=== PATIENT | female | born 1990 | race Caucasian/White ===

== ENCOUNTER 2016-10-07 17:40 | Emergency (ER) | payer OTHER ==
[~2016-10-07] VITALS: Ht 152.4 cm; Wt 58.4 kg
[2016-10-07 17:45] VITALS: TEMP 36.9; Ht 152.4 cm; Wt 58.4 kg
[2016-10-07] MEDS ORDERED: SODIUM CHLORIDE 0.9% 1000ML 1,000 ML IV STA (18:27)
[2016-10-07] MEDS ORDERED: ONDANSETRON INJ 2 MG/ML 2 ML VIAL IV STA (18:27)
[2016-10-07] MEDS ORDERED: KETOROLAC TROMETHAMINE 30 MG/ML VIAL IV STA (18:27)
[2016-10-07 18:42] LABS: BASO % 0.1 %; BASO ABS # 0.01 K/uL (0-0.2); COMPLETE YES; EOS % 0.7 %; HEMATOCRIT 40.9 % (37-47); IG% 0.1 %; LYMPH % 34.1 %; MEAN CELL VOLUME 89.1 fL (80-100); MEAN CORPUSCULAR HEMOGLOBIN 30.7 pg (25-34); MEAN CORPUSCULAR HGB CONC 34.5 g/dl (32-36); MEAN PLATELET VOLUME 10.3 fL (7.4-10.4); MONO % 7.1 %; NEUT % 57.9 %; PLATELET COUNT 195 K/uL (130-400); RED BLOOD COUNT 4.59 M/uL (4.2-5.4); WHITE BLOOD COUNT 7.62 K/uL (4.8-10.8)
[2016-10-07 18:59] LABS: ALT/SGPT 17 U/L (12-78); AST/SGOT 12 U/L (15-37); BLOOD UREA NITROGEN 12 mg/dl (7-18); BUN/CREATININE RATIO 16.9 (10-20); CARBON DIOXIDE 29 mmol/L (21-32); CHLORIDE 107 mmol/L (98-107); CREATININE 0.72 mg/dl (0.60-1.20); GLUCOSE 71 mg/dl (70-99); POTASSIUM 3.7 mmol/L (3.5-5.1); SODIUM 143 mmol/L (136-145)
[2016-10-07 19:02] LABS: ALKALINE PHOSPHATASE 40 U/L (45-117)
[2016-10-07] MEDS ORDERED: SERT25TA PO (19:09)
--- NOTE | 2016-10-07 19:18 | DIAGNOSTIC IMAGING REPORT ---
CT SCAN OF THE ABDOMEN AND PELVIS WITHOUT CONTRAST CLINICAL HISTORY: Left flank pain COMPARISON STUDY: 07/19/2015 TECHNIQUE: CT scan of the abdomen and pelvis was performed from the lung bases to the proximal femurs. Images are reviewed in the axial, sagittal, and coronal planes. IV contrast was not administered for this examination. CT DOSE: 536.99 mGy.cm FINDINGS: Lower chest: There are mild basilar atelectatic changes. Liver: The unenhanced liver is normal in size, contour, and attenuation. There is no intrahepatic biliary ductal dilatation. Gallbladder: Contracted Spleen: Normal in size and attenuation. Pancreas: Unremarkable. Adrenal glands: Unremarkable. Kidneys: There is 8 mm right renal hypodensity consistent with a cyst. No renal calculi are visualized. There is no hydronephrosis. No ureteral or bladder calculi are visualized. Bowel: Evaluation the bowel is limited given the lack of intravenous and oral contrast. There are no transition zones indicate bowel obstruction. The appendix appears normal as visualized. There is no acute diverticulitis. Peritoneum: There is a small amount of free fluid within the pelvis. No free air is visualized. Vasculature: The abdominal aorta is normal in course and caliber. Adenopathy: None. Pelvic viscera: The bladder, and pelvic viscera are unremarkable. Skeletal structures: No destructive osseous lesions are seen. IMPRESSION: 1. No evidence of bowel obstruction. No evidence of free air 2. No renal ureteral or bladder calculi are visualized 3. No evidence of acute appendicitis. No evidence of diverticulitis. 4. Small amount of free fluid in the pelvis Electronically signed by: Marck Paez M.D. 10/07/2016 7:16 PM Dictated Date/Time: 10/07/2016 7:12 PM
[2016-10-07 19:26] LABS: URINE APPEARANCE CLEAR (CLEAR); URINE BILIRUBIN NEG (NEG); URINE COLOR DK YELLOW; URINE EPITHELIAL CELL AUTO >30 /lpf (0-5); URINE NITRITE NEG (NEG); URINE SPECIFIC GRAVITY 1.025 (1.000-1.030); UROBILINOGEN NEG (NEG); ZZUR CULT IF INDIC CLEAN CATCH NO
[2016-10-07 19:32] LABS: MANUAL MICROSCOPIC REQUIRED? NO; REVIEW REQ? NO
[2016-10-07] MEDS ORDERED: ONDA4TAB46 PO (19:45)
--- NOTE | 2016-10-07 19:47 | EMERGENCY ROOM VISIT NOTE ---
History First contact with patient: 18:20 Chief Complaint: FLANK PAIN Stated Complaint: L SIDED FLANK PAIN,NAUSEA History of Present Illness The patient is a 26 year old female who presents to the Emergency Room with complaints of left flank pain which started yesterday. The patient states it is there all the time and gets intermittent sharp pains which make her nauseated. She currently rates the pain at a 6 out of 10. She denies any vomiting. The patient denies any fever, chest pain or shortness of breath. The patient denies any heartburn. The patient denies any urinary symptoms of frequency, urgency, dysuria or hematuria. The patient denies any vaginal discharge. The patient denies . The patient denies any history of kidney stones or any family history of kidney stones. Review of Systems 10 system review was performed and was negative unless stated otherwise history of present illness. Past Medical/Surgical History Medical Problems: (1) Bipolar Disorder, Unspecified (2) Chondromalacia Patellae (3) Diab Anayeli Wo Compl, Type Ii Or Unspec Type, Uncontrolled (4) Tobacco Use Disorder Family History Cancer Gallbladder disease Social History Smoking Status: Current Every Day Smoker Alcohol Use: none Marital Status: Occupation Status: unemployed Current/Historical Medications Scheduled Sertraline (Zoloft), 25 MG PO DAILY Allergies Coded Allergies: Adhesives (Unverified Allergy, Mild, RASH, 03/08/16) Nickel (Unverified Allergy, Mild, UNKNOWN, 03/08/16) Physical Exam Vital Signs Date Time Temp Pulse Resp B/P Pulse Ox O2 Delivery O2 Flow Rate FiO2 10/07/16 17:45 36.9 80 20 118/76 100 Room Air Physical Exam GENERAL: 26-year-old white female appears in no acute distress. MENTAL Status: Alert and oriented 3. EYES: No icterus noted MOUTH: Mucosa is moist NECK: Supple, no lymphadenopathy noted. No carotid bruits noted. LUNGS: Clear auscultation without wheezes rales or rhonchi. CARDIAC: Regular rate and rhythm without murmur. Pulses is full and equal throughout. BACK: Left CVA tenderness noted. ABDOMEN: Positive bowel sounds all 4 quadrants. Soft, tenderness palpation in the left flank region otherwise nontender to palpation without organomegaly or masses. EXTREMITIES: No cyanosis or edema noted. Medical Decision & Procedures ER Provider Diagnostic Interpretation: CT SCAN OF THE ABDOMEN AND PELVIS WITHOUT CONTRAST CLINICAL HISTORY: Left flank pain COMPARISON STUDY: 07/19/2015 TECHNIQUE: CT scan of the abdomen and pelvis was performed from the lung bases to the proximal femurs. Images are reviewed in the axial, sagittal, and coronal planes. IV contrast was not administered for this examination. CT DOSE: 536.99 mGy.cm FINDINGS: Lower chest: There are mild basilar atelectatic changes. Liver: The unenhanced liver is normal in size, contour, and attenuation. There is no intrahepatic biliary ductal dilatation. Gallbladder: Contracted Spleen: Normal in size and attenuation. Pancreas: Unremarkable. Adrenal glands: Unremarkable. Kidneys: There is 8 mm right renal hypodensity consistent with a cyst. No renal calculi are visualized. There is no hydronephrosis. No ureteral or bladder calculi are visualized. Bowel: Evaluation the bowel is limited given the lack of intravenous and oral contrast. There are no transition zones indicate bowel obstruction. The appendix appears normal as visualized. There is no acute diverticulitis. Peritoneum: There is a small amount of free fluid within the pelvis. No free air is visualized. Vasculature: The abdominal aorta is normal in course and caliber. Adenopathy: None. Pelvic viscera: The bladder, and pelvic viscera are unremarkable. Skeletal structures: No destructive osseous lesions are seen. IMPRESSION: 1. No evidence of bowel obstruction. No evidence of free air 2. No renal ureteral or bladder calculi are visualized 3. No evidence of acute appendicitis. No evidence of diverticulitis. 4. Small amount of free fluid in the pelvis Laboratory Results 10/07/16 18:30 Red Blood Count 4.59, Mean Corpuscular Volume 89.1, Mean Corpuscular Hemoglobin 30.7, Mean Corpuscular Hemoglobin Concent 34.5, Mean Platelet Volume 10.3, Neutrophils (%) (Auto) 57.9, Lymphocytes (%) (Auto) 34.1, Monocytes (%) (Auto) 7.1, Eosinophils (%) (Auto) 0.7, Basophils (%) (Auto) 0.1, Neutrophils # (Auto) 4.41, Lymphocytes # (Auto) 2.60, Monocytes # (Auto) 0.54, Eosinophils # (Auto) 0.05, Basophils # (Auto) 0.01 10/07/16 18:30 Test 10/07/16 18:30 White Blood Count 7.62 K/uL (4.8-10.8) Red Blood Count 4.59 M/uL (4.2-5.4) Hemoglobin 14.1 g/dL (12.0-16.0) Hematocrit 40.9 % (37-47) Mean Corpuscular Volume 89.1 fL (80-100) Mean Corpuscular Hemoglobin 30.7 pg (25-34) Mean Corpuscular Hemoglobin Concent 34.5 g/dl (32-36) Platelet Count 195 K/uL (130-400) Mean Platelet Volume 10.3 fL (7.4-10.4) Neutrophils (%) (Auto) 57.9 % Lymphocytes (%) (Auto) 34.1 % Monocytes (%) (Auto) 7.1 % Eosinophils (%) (Auto) 0.7 % Basophils (%) (Auto) 0.1 % Neutrophils # (Auto) 4.41 K/uL (1.4-6.5) Lymphocytes # (Auto) 2.60 K/uL (1.2-3.4) Monocytes # (Auto) 0.54 K/uL (0.11-0.59) Eosinophils # (Auto) 0.05 K/uL (0-0.5) Basophils # (Auto) 0.01 K/uL (0-0.2) RDW Standard Deviation 44.1 fL (36.4-46.3) RDW Coefficient of Variation 13.5 % (11.5-14.5) Immature Granulocyte % (Auto) 0.1 % Immature Granulocyte # (Auto) 0.01 K/uL (0.00-0.02) Urine Color DK YELLOW Urine Appearance CLEAR (CLEAR) Urine pH 7.0 (4.5-7.5) Urine Specific [place] 1.025 (1.000-1.030) Urine Protein NEG (NEG) Urine Glucose (UA) NEG (NEG) Urine Ketones TRACE (NEG) Urine Occult Blood NEG (NEG) Urine Nitrite NEG (NEG) Urine Bilirubin NEG (NEG) Urine Urobilinogen NEG (NEG) Urine Leukocyte Esterase SMALL (NEG) Urine WBC (Auto) 1-5 /hpf (0-5) Urine RBC (Auto) 0-4 /hpf (0-4) Urine Hyaline Casts (Auto) 1-5 /lpf (0-5) Urine Epithelial Cells (Auto) >30 /lpf (0-5) Urine Bacteria (Auto) NEG (NEG) Anion Gap 7.0 mmol/L (3-11) Est Creatinine Clear Calc Drug Dose 96.4 ml/min Estimated GFR () 135.9 Estimated GFR (Non- 117.2 BUN/Creatinine Ratio 16.9 (10-20) Calcium Level 9.0 mg/dl (8.5-10.1) Total Bilirubin 0.4 mg/dl (0.2-1) Direct Bilirubin < 0.1 mg/dl (0-0.2) Aspartate Amino Transf (AST/SGOT) 12 U/L (15-37) Alanine Aminotransferase (ALT/SGPT) 17 U/L (12-78) Alkaline Phosphatase 40 U/L (45-117) Total Protein 7.6 gm/dl (6.4-8.2) Albumin 4.3 gm/dl (3.4-5.0) Lipase 245 U/L (73-393) Medications Administered Medications (Trade) Dose Ordered Sig/Blanca Route Start Time Stop Time Status Last Admin Dose Admin Ondansetron HCl (Zofran Inj) 4 mg NOW STAT IV 10/07/16 18:27 10/07/16 18:30 DC 10/07/16 18:40 4 MG Ketorolac Tromethamine 30 mg 30 mg NOW STAT IV 10/07/16 18:27 10/07/16 18:30 DC 10/07/16 18:41 30 MG Sodium Chloride (Nss 1000ml) 1,000 ml @ 999 mls/hr Q1H1M STAT IV 10/07/16 18:27 10/07/16 19:27 DC 10/07/16 18:40 999 MLS/HR ED Course The patient was evaluated. IV access was obtained. The patient was given 1 L normal saline wide-open. CBC and differential, renal profile, LFTs and lipase levels were ordered. Urinalysis was ordered. The patient was given Toradol 30 mg IV and Zofran 4 mg IV push for nausea. A CT stone study was ordered and interpreted by the radiologist as above without any acute findings. Urinalysis was negative. Labs are reviewed and were unremarkable. The patient was reevaluated and was feeling slightly better. The patient was informed of all findings and discharged home in stable condition. Medical Decision Differential diagnoses include reflux, gastritis, gastroenteritis, pancreatitis , cholelithiasis, cholecystitis, appendicitis, mesenteric ischemia, pyelonephritis, urinary tract infection, renal colic, diverticulitis, shingles, bowel obstruction, intussusception, hernia, ovarian torsion, ruptured ovarian cyst, ectopic , . Impression Primary Impression: Left upper quadrant pain Additional Impression: Nausea Departure Information Dispostion Home / Self-Care Condition GOOD Prescriptions Ondansetron Hcl (ZOFRAN) 4 Mg Tab 4 MG PO Q8H Y for Nausea, #10 TAB Prov: Adriana Mauro PA-C 10/07/16 Referrals Lindsey Carlson D.O. (PCP) Forms HOME CARE DOCUMENTATION FORM, IMPORTANT VISIT INFORMATION Patient Instructions A Signature Page, ED Nausea Vomiting, [facility] Additional Instructions Follow bland diet. Drink a lot of water. Avoid acidic or spicy foods. Advance diet slowly as tolerated. Recommend taking Zantac 150 mg twice daily for the next 5 days. Follow-up with your family doctor in 2 days for reevaluation. If symptoms should worsen, return to ER.
[2016-10-07 19:58] VITALS: BP 112/64; PULSE 87; O2SAT 97
== END 2016-10-07 19:59 | disposition home or self-care (01) ==
LOC: C.EDB 17:42 → C.EDC 19:59
DX: R10.12 Left upper quadrant pain (principal); R11.0 Nausea; E11.9 Type 2 diabetes mellitus without complications; F31.9 Bipolar disorder, unspecified; F17.200 Nicotine dependence, unspecified, uncomplicated; Z88.8 Allergy status to other drugs, medicaments and biological substances; Z91.09 Other allergy status, other than to drugs and biological substances; Z80.9 Family history of malignant neoplasm, unspecified; Z83.79 Family history of other diseases of the digestive system

== ENCOUNTER 2016-10-25 12:56 | Emergency (ER) | payer OTHER ==
[~2016-10-25] VITALS: Ht 152.4 cm; Wt 59.8 kg
[~2016-10-25 12:56] MED LIST: ONDA4TAB46 PO; SERT25TA PO
[2016-10-25 13:03] VITALS: TEMP 36.5; Ht 152.4 cm; Wt 59.8 kg
[2016-10-25] MEDS ORDERED: SODIUM CHLORIDE 0.9% 500ML 500 ML IV STA (14:03)
--- NOTE | 2016-10-25 14:31 | DIAGNOSTIC IMAGING REPORT ---
CHEST ONE VIEW PORTABLE CLINICAL HISTORY: Mood disorder. COMPARISON STUDY: Chest radiograph January 29, 2012. FINDINGS: Lung volumes are normal. Lungs are clear. There is no pneumothorax or pleural effusion. Cardiac size is normal. Mediastinal contours are normal. There is no evidence of pulmonary edema. IMPRESSION: No acute cardiopulmonary findings. Electronically signed by: Pato Tony M.D. 10/25/2016 2:29 PM Dictated Date/Time: 10/25/2016 2:29 PM
[2016-10-25 15:05] LABS: HEMATOCRIT 37.5 % (37-47); MEAN CELL VOLUME 89.5 fL (80-100); MEAN CORPUSCULAR HEMOGLOBIN 30.8 pg (25-34); MEAN CORPUSCULAR HGB CONC 34.4 g/dl (32-36); MEAN PLATELET VOLUME 10.9 fL (7.4-10.4); PLATELET COUNT 222 K/uL (130-400); RED BLOOD COUNT 4.19 M/uL (4.2-5.4); WHITE BLOOD COUNT 13.41 K/uL (4.8-10.8)
[2016-10-25 15:25] LABS: ALT/SGPT 15 U/L (12-78); BLOOD UREA NITROGEN 14 mg/dl (7-18); BUN/CREATININE RATIO 20.6 (10-20); CALCIUM 8.8 mg/dl (8.5-10.1); CARBON DIOXIDE 22 mmol/L (21-32); CHLORIDE 110 mmol/L (98-107); CREATININE 0.69 mg/dl (0.60-1.20); GLUCOSE 77 mg/dl (70-99); POTASSIUM 3.2 mmol/L (3.5-5.1); SODIUM 144 mmol/L (136-145)
[2016-10-25 15:27] LABS: URINE APPEARANCE CLEAR (CLEAR); URINE BILIRUBIN NEG (NEG); URINE COLOR YELLOW; URINE EPITHELIAL CELL AUTO >30 /lpf (0-5); URINE NITRITE NEG (NEG); URINE SPECIFIC GRAVITY 1.024 (1.000-1.030); UROBILINOGEN NEG (NEG)
[2016-10-25 15:28] LABS: MANUAL MICROSCOPIC REQUIRED? NO; REVIEW REQ? NO
[2016-10-25 15:35] LABS: ALB/GLOB RATIO 1.3 (0.9-2); ALKALINE PHOSPHATASE 40 U/L (45-117); AST/SGOT 22 U/L (15-37); BASO % 0.1 %; BASO ABS # 0.01 K/uL (0-0.2); COMPLETE YES; EOS % 0.3 %; IG% 0.3 %; LYMPH % 14.8 %; LYMPH ABS # 1.98 K/uL (1.2-3.4); MONO % 7.2 %; NEUT % 77.3 %
[2016-10-25] MEDS ORDERED: POTASSIUM CHLORIDE 10 MEQ TABCR PO STA (15:46)
[2016-10-25 15:57] LABS: BENZODIAZEPINE, URINE NEG (NEG); COCAINE,URINE NEG (NEG); PHENCYCLIDINE, URINE NEG (NEG)
[2016-10-25 17:12] VITALS: BP 167/71; PULSE 96; O2SAT 98
--- NOTE | 2016-10-25 20:43 | EMERGENCY ROOM VISIT NOTE ---
History Report prepared by Mason: Christy Dumont Under the Supervision of: Dr. Oscar Ortiz D.O. First contact with patient: 13:51 Chief Complaint: OTHER COMPLAINT Stated Complaint: RESPIRATORY History of Present Illness The patient is a 26 year old female who presents to the Emergency Room with complaints of an episode of shortness of breath that occurred about 3 hours ago. The patient states that she was vacuuming this morning and she started feeling nauseated. She sat down and began to feel short of breath. Afterwards, her fingers on both hands became numb. En route, when her blood pressure was being taken on her right arm, she was unable to move her left hand. The numbness spread from her hands up her entire arms and down through her entire body. She had a cramping sensation in both her hands and feet. She states that she tried to control her breathing, but it did not help her symptoms. Since her arrival in the ED, she has had a few episodes where her breathing speeds up but she has been able to control it. She notes that she has some epigastric abdominal pain during the episodes. Currently, she has some pain and swelling to her anterior neck. She also complains of a cough and a runny nose recently. She ended her menstrual period yesterday. Pt denies headache, change in vision, fevers, chest pain, vomiting, diarrhea, pain with urination, melena, leg swelling, hemoptysis, or other complaints. No recent surgeries or long trips. She does not have a history of anxiety attacks. She is not on control. The patient is a smoker. Additional history was obtained from the patient's friend. She notes that the patient told her that she wanted to kill herself and wanted to 4-5 times yesterday. The patient does report some problems going on with her father recently. She admits to hitting her head off of a wall yesterday but denies any headaches or loss of consciousness. Source of History: patient Onset: 3 hours ago Position: other (global) Quality: other (shortness of breath ) Timing: other (episodic) Associated Symptoms: + cough, + nausea, + neck pain, + numbness, No diarrhea , No fevers, No headache, No melena, No urinary symptoms, No vomiting Note: Other symptoms: runny nose Review of Systems See HPI for pertinent positives & negatives. A total of 10 systems reviewed and were otherwise negative. Past Medical & Surgical Medical Problems: (1) Bipolar Disorder, Unspecified (2) Chondromalacia Patellae (3) Diab Anayeli Wo Compl, Type Ii Or Unspec Type, Uncontrolled (4) Tobacco Use Disorder Family History Cancer Gallbladder disease Social History Smoking Status: Current Every Day Smoker Alcohol Use: none Marital Status: Occupation Status: unemployed Current/Historical Medications No Active Prescriptions or Reported Meds Allergies Coded Allergies: Adhesives (Unverified Allergy, Mild, RASH, 03/08/16) Nickel (Unverified Allergy, Mild, UNKNOWN, 03/08/16) Physical Exam Vital Signs Date Time Temp Pulse Resp B/P Pulse Ox O2 Delivery O2 Flow Rate FiO2 10/25/16 17:12 96 18 167/71 98 Room Air 10/25/16 15:42 73 18 107/69 99 Room Air 10/25/16 13:03 36.5 107 24 136/68 92 Room Air Physical Exam GENERAL: Sitting up in bed, disheveled, nontoxic, anxious. EYE EXAM: normal conjunctiva, PERRL and EOM's intact OROPHARYNX: no exudate, no erythema, lips, buccal mucosa, and tongue normal and mucous membranes are moist NECK: supple, no nuchal rigidity, no adenopathy, non-tender LUNGS: Clear to auscultation. Normal chest wall mechanics HEART: no murmurs, S1 normal and S2 normal ABDOMEN: abdomen soft, non-tender, normo-active bowel sounds, no masses, no rebound or guarding. BACK: Back is symmetrical on inspection and there is no deformity, no midline tenderness, no CVA tenderness. SKIN: no rashes and no bruising UPPER EXTREMITIES: upper extremities are grossly normal. LOWER EXTREMITIES: No pitting edema. NEURO EXAM: Normal sensorium, cranial nerves II-XII intact, normal speech, no weakness of arms, no weakness of legs. No drift. Finger to nose intact. Gross sensation intact. Rapid alternating movements of the upper extremities are intact. PSYCH: Denies suicidal or homicidal ideation, but friend notes that she has had homicidal ideations since yesterday. Medical Decision & Procedures ER Provider Diagnostic Interpretation: Xray results per the radiologist and my interpretation. CHEST ONE VIEW PORTABLE CLINICAL HISTORY: Mood disorder. COMPARISON STUDY: Chest radiograph January 29, 2012. FINDINGS: Lung volumes are normal. Lungs are clear. There is no pneumothorax or pleural effusion. Cardiac size is normal. Mediastinal contours are normal. There is no evidence of pulmonary edema. IMPRESSION: No acute cardiopulmonary findings. Electronically signed by: Pato Tony M.D. 10/25/2016 2:29 PM Dictated Date/Time: 10/25/2016 2:29 PM Laboratory Results 10/25/16 14:50 Red Blood Count 4.19, Mean Corpuscular Volume 89.5, Mean Corpuscular Hemoglobin 30.8, Mean Corpuscular Hemoglobin Concent 34.4, Mean Platelet Volume 10.9, Neutrophils (%) (Auto) 77.3, Lymphocytes (%) (Auto) 14.8, Monocytes (%) (Auto) 7.2, Eosinophils (%) (Auto) 0.3, Basophils (%) (Auto) 0.1, Neutrophils # (Auto) 10.37, Lymphocytes # (Auto) 1.98, Monocytes # (Auto) 0.97, Eosinophils # (Auto) 0.04, Basophils # (Auto) 0.01 10/25/16 14:50 Test 10/25/16 14:40 10/25/16 14:48 10/25/16 14:50 Urine Color YELLOW Urine Appearance CLEAR (CLEAR) Urine pH 6.0 (4.5-7.5) Urine Specific [place] 1.024 (1.000-1.030) Urine Protein NEG (NEG) Urine Glucose (UA) NEG (NEG) Urine Ketones 3+ (NEG) Urine Occult Blood NEG (NEG) Urine Nitrite NEG (NEG) Urine Bilirubin NEG (NEG) Urine Urobilinogen NEG (NEG) Urine Leukocyte Esterase TRACE (NEG) Urine WBC (Auto) 1-5 /hpf (0-5) Urine RBC (Auto) 0-4 /hpf (0-4) Urine Hyaline Casts (Auto) 1-5 /lpf (0-5) Urine Epithelial Cells (Auto) >30 /lpf (0-5) Urine Bacteria (Auto) NEG (NEG) Urine Test NEG (NEG) Urine Opiates Screen NEG (NEG) Urine Methadone, Qualitative NEG (NEG) Urine Barbiturates NEG (NEG) Urine Phencyclidine (PCP) Level NEG (NEG) Ur Amphetamine/Methamphetamine NEG (NEG) MDMA (Ecstasy) Screen NEG (NEG) Urine Benzodiazepines Screen NEG (NEG) Urine Cocaine Metabolite NEG (NEG) Urine Marijuana (THC) POS (NEG) Bedside Glucose 77 mg/dl (70-90) White Blood Count 13.41 K/uL (4.8-10.8) Red Blood Count 4.19 M/uL (4.2-5.4) Hemoglobin 12.9 g/dL (12.0-16.0) Hematocrit 37.5 % (37-47) Mean Corpuscular Volume 89.5 fL (80-100) Mean Corpuscular Hemoglobin 30.8 pg (25-34) Mean Corpuscular Hemoglobin Concent 34.4 g/dl (32-36) Platelet Count 222 K/uL (130-400) Mean Platelet Volume 10.9 fL (7.4-10.4) Neutrophils (%) (Auto) 77.3 % Lymphocytes (%) (Auto) 14.8 % Monocytes (%) (Auto) 7.2 % Eosinophils (%) (Auto) 0.3 % Basophils (%) (Auto) 0.1 % Neutrophils # (Auto) 10.37 K/uL (1.4-6.5) Lymphocytes # (Auto) 1.98 K/uL (1.2-3.4) Monocytes # (Auto) 0.97 K/uL (0.11-0.59) Eosinophils # (Auto) 0.04 K/uL (0-0.5) Basophils # (Auto) 0.01 K/uL (0-0.2) RDW Standard Deviation 43.6 fL (36.4-46.3) RDW Coefficient of Variation 13.3 % (11.5-14.5) Immature Granulocyte % (Auto) 0.3 % Immature Granulocyte # (Auto) 0.04 K/uL (0.00-0.02) D-Dimer < 190 ug/L FEU (0-500) Anion Gap 12.0 mmol/L (3-11) Est Creatinine Clear Calc Drug Dose 101.7 ml/min Estimated GFR () 141.2 Estimated GFR (Non- 121.8 BUN/Creatinine Ratio 20.6 (10-20) Calcium Level 8.8 mg/dl (8.5-10.1) Total Bilirubin 0.4 mg/dl (0.2-1) Direct Bilirubin 0.1 mg/dl (0-0.2) Aspartate Amino Transf (AST/SGOT) 22 U/L (15-37) Alanine Aminotransferase (ALT/SGPT) 15 U/L (12-78) Alkaline Phosphatase 40 U/L (45-117) Troponin I < 0.015 ng/ml (0-0.045) Total Protein 7.2 gm/dl (6.4-8.2) Albumin 4.0 gm/dl (3.4-5.0) Globulin 3.2 gm/dl (2.5-4.0) Albumin/Globulin Ratio 1.3 (0.9-2) Thyroid Stimulating Hormone (TSH) 1.080 uIu/ml (0.300-4.500) Ethyl Alcohol mg/dL < 3.0 mg/dl (0-3) Laboratory results per my review. Medications Administered Medications (Trade) Dose Ordered Sig/Blanca Route Start Time Stop Time Status Last Admin Dose Admin Sodium Chloride (Nss 500ml) 500 ml @ 999 mls/hr Q31M STAT IV 10/25/16 14:03 10/25/16 14:33 DC 10/25/16 14:03 999 MLS/HR Potassium Chloride (Klor-Con M10) 40 meq NOW STAT PO 10/25/16 15:46 10/25/16 15:51 DC 10/25/16 15:46 40 MEQ ECG Indication: SOB/dyspnea Rate (beats per minute): 60 Rhythm: sinus rhythm Findings: no ectopy, other (normal axis) ED Course ED COURSE: Vital signs were reviewed and showed tachycardia. The patients medical record was reviewed The above diagnostic studies were performed and reviewed. ED treatments and interventions as stated above. 1353: The patient was evaluated in room A3. A complete history and physical examination was performed. 1403: The patient's nurse was notified after the patient's friend told me that she had suicidal ideations since yesterday. Ordered NSS 500 ml @ 999 mls/hr IV. 1546: Ordered Potassium Chloride 40 meq PO. 1645: Upon reevaluation, the patient is feeling better. She does not have any homicidal or suicidal ideations and does not want to kill herself. She admits that yesterday she was depressed and upset over the of her cousin but would never kill herself. She has two kids and wanted to get her GED. Her friends feel comfortable taking her home and don't think she is in any danger to herself. I discussed my findings with the patient and she understands and agrees with the treatment plan. Based on the patients age, coexisting illnesses, exam and lab findings the decision to treat as an outpatient was made. The patient remained stable while under my care. The patient appeared well at the time of discharge. Medical Decision Differential diagnoses includes but is not limited to pneumonia, bronchitis, COPD/Asthma exacerbation, pneumothorax, pulmonary embolism, congestive heart failure, acute coronary syndrome Patient is a 26-year-old female is brought in for chest pain shortness of breath and diffuse numbness. She notes that she has had this intermittently. She has that her symptoms have completely resolved at this point. Labs show no significant anemia but a mild leukocytosis 13,000. Potassium is slightly low at 3.2 which I favor secondary to her initial tachypnea. BMP along with LFTs, troponin and TSH are normal. D-dimer was normal. Tox was positive for marijuana. Alcohol was negative. UA along with was negative. Patient's friends note that she did make suicidal statements yesterday. Patient admits to this and notes that she is very distraught yesterday secondary to her father. Patient notes that she has no plan. She does have 2 children notes that she would never harm herself. She had no intent. Along with her children she notes that she also once to get her GED. Friends do not believe that she would harm herself. EKG was unremarkable. Patient was evaluated by psychiatry/care managers and she met no admission criteria. She is discharged with follow-up with [facility]. I discussed the findings the patient and family members. They're culture will take her home. I do believe that this is secondary to anxiety. Discussed with Pt concerning signs and symptoms to watch out for. Pt was instructed to follow up with their PCP and discussed with the patient their option to return to the ED at anytime for persistent or worsening symptoms. The appropriate anticipatory guidance and out-patient management, including indications for return to the emergency department, were explained at length to the patient and understood. Impression Primary Impression: Anxiety Additional Impressions: Palpitations Shortness of breath Mood disorder Scribe Attestation The scribe's documentation has been prepared under my direction and personally reviewed by me in its entirety. I confirm that the note above accurately reflects all work, treatment, procedures, and medical decision making performed by me. Departure Information Dispostion Home / Self-Care Prescriptions No Active Prescriptions or Reported Meds Referrals Lindsey Carlson D.O. (PCP) Patient Instructions Depression Causes, Depression Help Tips, Depression Know Signs Sx, My [facility] Additional Instructions Please follow up with your primary care doctor with in the next 24 hours. Any worsening of your symptoms, please return to the ED immediately. This includes worsening chest pain, shortness breath, passing out, thought someone to harm herself or anyone else, or any other concerning signs or symptoms from her standpoint. Please follow up with [facility] as directed to by psychiatry care management Problem Qualifiers
== END 2016-10-25 17:03 | disposition home or self-care (01) ==
LOC: EDBD 12:56 → C.EDA 12:56
DX: F41.9 Anxiety disorder, unspecified (principal); R00.2 Palpitations; R06.02 Shortness of breath; F17.210 Nicotine dependence, cigarettes, uncomplicated; F31.9 Bipolar disorder, unspecified; E11.9 Type 2 diabetes mellitus without complications; R20.0 Anesthesia of skin

== ENCOUNTER 2016-12-06 06:19 | Emergency (ER) | payer SELFPAY ==
[~2016-12-06] VITALS: Ht 152.4 cm; Wt 55.4 kg
[2016-12-06 06:25] VITALS: TEMP 37.4; Ht 152.4 cm; Wt 55.4 kg
--- NOTE | 2016-12-06 06:41 | EMERGENCY ROOM VISIT NOTE ---
History Report prepared by Mason: Tsering Subramanian Under the Supervision of: Dr. Agustín Juarez M.D. First contact with patient: 06:33 Chief Complaint: NAUSEA Stated Complaint: NAUSEA,VOMITING x 2WKS History of Present Illness The patient is a 26 year old female who presents to the Emergency Room with complaints of constant nausea beginning 2 weeks ago. The patient states that she had abdominal cramping that felt like period cramps but she had her period 2 weeks prior and is supposed to get her next period next week. She reports that she took 2 tests that were negative and notes that she has 2 children. She complains of vomiting, diarrhea 2 days ago, and intermittent chills. The patient denies any urinary symptoms, fever, and increased stress. She notes that she has never had this problem before. Source of History: patient Onset: 2 weeks ago Position: other (global) Quality: other (nausea) Timing: constant Associated Symptoms: + chills, + diarrhea, + vomiting, No fevers, No urinary symptoms Review of Systems All systems have been listed, reviewed, and are negative other than those previously mentioned. Please see Additional Medical History Sheet. Past Medical & Surgical Medical Problems: (1) Bipolar Disorder, Unspecified (2) Chondromalacia Patellae (3) Diab Anayeli Wo Compl, Type Ii Or Unspec Type, Uncontrolled (4) Tobacco Use Disorder Family History Cancer Gallbladder disease Social History Smoking Status: Never Smoker Alcohol Use: none Marital Status: Occupation Status: employed Current/Historical Medications Scheduled Ondasetron Odt (Zofran Odt), 4 MG SL Q6H Allergies Coded Allergies: Adhesives (Unverified Allergy, Mild, RASH, 12/06/16) Nickel (Unverified Allergy, Mild, UNKNOWN, 12/06/16) Physical Exam Vital Signs Date Time Temp Pulse Resp B/P Pulse Ox O2 Delivery O2 Flow Rate FiO2 12/06/16 08:34 66 18 103/64 100 Room Air 12/06/16 06:25 37.4 87 20 116/77 100 Room Air Physical Exam GENERAL: Patient awake, alert, oriented x 3. Patient follows commands. Patient does not appear toxic. Patient is adequately hydrated and well- nourished. HEENT: Normal head, pupils equal, reactive to light and accommodation. Ears normal. Oral cavity and posterior pharynx appear normal. Neck: Without adenopathy, no neck vein distention. LUNGS: Clear to auscultation. No wheezes, no rales, no rhonchi. HEART: No murmurs. No gallops. No rubs ABDOMEN: No masses, no rebound, no hepatomegaly or splenomegaly. EXTREMITIES: No signs of trauma. No pedal or pretibial edema. No calf or thigh tenderness. NEUROLOGIC: Cranial nerves II-XII within normal limits. No gross motor sensory function deficits. Medical Decision & Procedures Laboratory Results 12/06/16 06:45 Red Blood Count 4.59, Mean Corpuscular Volume 89.5, Mean Corpuscular Hemoglobin 31.2, Mean Corpuscular Hemoglobin Concent 34.8, Mean Platelet Volume 10.5, Neutrophils (%) (Auto) 70.3, Lymphocytes (%) (Auto) 19.8, Monocytes (%) (Auto) 8.9, Eosinophils (%) (Auto) 0.7, Basophils (%) (Auto) 0.1, Neutrophils # (Auto) 5.63, Lymphocytes # (Auto) 1.59, Monocytes # (Auto) 0.71, Eosinophils # (Auto) 0.06, Basophils # (Auto) 0.01 12/06/16 06:45 Test 12/06/16 06:40 12/06/16 06:45 Urine Color YELLOW Urine Appearance CLEAR (CLEAR) Urine pH 7.0 (4.5-7.5) Urine Specific [place] 1.013 (1.000-1.030) Urine Protein NEG (NEG) Urine Glucose (UA) NEG (NEG) Urine Ketones NEG (NEG) Urine Occult Blood NEG (NEG) Urine Nitrite NEG (NEG) Urine Bilirubin NEG (NEG) Urine Urobilinogen NEG (NEG) Urine Leukocyte Esterase MODERATE (NEG) Urine WBC (Auto) 5-10 /hpf (0-5) Urine RBC (Auto) 0-4 /hpf (0-4) Urine Hyaline Casts (Auto) 1-5 /lpf (0-5) Urine Epithelial Cells (Auto) >30 /lpf (0-5) Urine Bacteria (Auto) NEG (NEG) Urine Test NEG (NEG) White Blood Count 8.02 K/uL (4.8-10.8) Red Blood Count 4.59 M/uL (4.2-5.4) Hemoglobin 14.3 g/dL (12.0-16.0) Hematocrit 41.1 % (37-47) Mean Corpuscular Volume 89.5 fL (80-100) Mean Corpuscular Hemoglobin 31.2 pg (25-34) Mean Corpuscular Hemoglobin Concent 34.8 g/dl (32-36) Platelet Count 197 K/uL (130-400) Mean Platelet Volume 10.5 fL (7.4-10.4) Neutrophils (%) (Auto) 70.3 % Lymphocytes (%) (Auto) 19.8 % Monocytes (%) (Auto) 8.9 % Eosinophils (%) (Auto) 0.7 % Basophils (%) (Auto) 0.1 % Neutrophils # (Auto) 5.63 K/uL (1.4-6.5) Lymphocytes # (Auto) 1.59 K/uL (1.2-3.4) Monocytes # (Auto) 0.71 K/uL (0.11-0.59) Eosinophils # (Auto) 0.06 K/uL (0-0.5) Basophils # (Auto) 0.01 K/uL (0-0.2) RDW Standard Deviation 43.7 fL (36.4-46.3) RDW Coefficient of Variation 13.3 % (11.5-14.5) Immature Granulocyte % (Auto) 0.2 % Immature Granulocyte # (Auto) 0.02 K/uL (0.00-0.02) Anion Gap 10.0 mmol/L (3-11) Est Creatinine Clear Calc Drug Dose 79.7 ml/min Estimated GFR () 111.2 Estimated GFR (Non- 95.9 BUN/Creatinine Ratio 14.3 (10-20) Calcium Level 8.5 mg/dl (8.5-10.1) Total Bilirubin 0.3 mg/dl (0.2-1) Aspartate Amino Transf (AST/SGOT) 10 U/L (15-37) Alanine Aminotransferase (ALT/SGPT) 16 U/L (12-78) Alkaline Phosphatase 37 U/L (45-117) Total Protein 7.6 gm/dl (6.4-8.2) Albumin 4.0 gm/dl (3.4-5.0) Globulin 3.6 gm/dl (2.5-4.0) Albumin/Globulin Ratio 1.1 (0.9-2) Laboratory results as stated above per my review. Medications Administered Medications (Trade) Dose Ordered Sig/Blanca Route Start Time Stop Time Status Last Admin Dose Admin Ondansetron HCl (Zofran Odt) 4 mg ONE ONCE PO 12/06/16 06:45 12/06/16 06:46 DC 12/06/16 06:48 4 MG ED Course 0633: Past medical records reviewed. The patient was evaluated in room B11B. A complete history and physical examination was performed. 0645: Zofran Odt 4mg PO. 0820: I reevaluated and updated the patient. She is feeling better. 0831: Upon reevaluation, the patient appeared to have improvement of her symptoms. I discussed today's findings with the patient. She verbalized agreement of the treatment plan. The patient was discharged home. Medical Decision Differential diagnoses include , viral gastroenteritis, and metabolic disorder. Multiple labs and urinalysis were obtained. Please see above. The patient does have some white cells in the urine but appears to be a contaminated specimen. Therefore, we will await culture results prior to treatment. The patient did improve with Zofran. The patient appears have some nonspecific abdominal pain and nausea. The patient will be treated conservatively with Zofran at home. She is to follow-up with the family physician and if necessary gastroenterology. Impression Primary Impression: Acute gastroenteritis Scribe Attestation The scribe's documentation has been prepared under my direction and personally reviewed by me in its entirety. I confirm that the note above accurately reflects all work, treatment, procedures, and medical decision making performed by me. Departure Information Dispostion Home / Self-Care Prescriptions Ondasetron Odt (ZOFRAN ODT) 4 Mg Tab 4 MG SL Q6H for Nausea, #10 TAB Prov: Agustín Juarez M.D. 12/06/16 Referrals No Doctor, Assigned (PCP) Forms HOME CARE DOCUMENTATION FORM, IMPORTANT VISIT INFORMATION Patient Instructions My [facility] Additional Instructions 1 Zofran every 4-6 hours as needed for nausea. Drink extra fluids. Follow-up with your family physician within the next 7 days. You may return to work tomorrow.
[2016-12-06] MEDS ORDERED: ONDANSETRON 4MG OD TAB PO ONE (06:45)
[2016-12-06 06:52] LABS: BASO % 0.1 %; BASO ABS # 0.01 K/uL (0-0.2); COMPLETE YES; EOS % 0.7 %; HEMATOCRIT 41.1 % (37-47); IG% 0.2 %; LYMPH % 19.8 %; LYMPH ABS # 1.59 K/uL (1.2-3.4); MEAN CELL VOLUME 89.5 fL (80-100); MEAN CORPUSCULAR HEMOGLOBIN 31.2 pg (25-34); MEAN CORPUSCULAR HGB CONC 34.8 g/dl (32-36); MEAN PLATELET VOLUME 10.5 fL (7.4-10.4); MONO % 8.9 %; NEUT % 70.3 %; PLATELET COUNT 197 K/uL (130-400); RED BLOOD COUNT 4.59 M/uL (4.2-5.4); WHITE BLOOD COUNT 8.02 K/uL (4.8-10.8)
[2016-12-06 06:59] LABS: URINE APPEARANCE CLEAR (CLEAR); URINE BILIRUBIN NEG (NEG); URINE COLOR YELLOW; URINE EPITHELIAL CELL AUTO >30 /lpf (0-5); URINE NITRITE NEG (NEG); URINE SPECIFIC GRAVITY 1.013 (1.000-1.030); UROBILINOGEN NEG (NEG); ZZUR CULT IF INDIC CLEAN CATCH NO
[2016-12-06 07:03] LABS: MANUAL MICROSCOPIC REQUIRED? NO; REVIEW REQ? NO
[2016-12-06 07:19] LABS: BUN/CREATININE RATIO 14.3 (10-20); CALCIUM 8.5 mg/dl (8.5-10.1); CREATININE 0.85 mg/dl (0.60-1.20); POTASSIUM 3.6 mmol/L (3.5-5.1)
[2016-12-06 07:22] LABS: ALB/GLOB RATIO 1.1 (0.9-2)
[2016-12-06] MEDS ORDERED: ONDA4TAB10 SL (08:29)
[2016-12-06 08:34] VITALS: BP 103/64; PULSE 66; O2SAT 100
== END 2016-12-06 08:48 | disposition home or self-care (01) ==
LOC: C.EDB 06:20
DX: K52.9 Noninfective gastroenteritis and colitis, unspecified (principal)

== ENCOUNTER 2017-01-02 12:36 | Emergency (ER) | payer OTHER ==
[~2017-01-02] VITALS: Ht 152.4 cm; Wt 57.9 kg
[~2017-01-02 12:36] MED LIST changes: +ONDA4TAB10 SL; -ONDA4TAB46 PO; -SERT25TA PO
[2017-01-02 12:38] VITALS: TEMP 37.1; Ht 152.4 cm; Wt 57.9 kg
[2017-01-02] MEDS ORDERED: SODIUM CHLORIDE 0.9% 1000ML 1,000 ML IV STA (12:44)
[2017-01-02 13:05] LABS: URINE APPEARANCE CLEAR (CLEAR); URINE BILIRUBIN NEG (NEG); URINE COLOR YELLOW; URINE NITRITE NEG (NEG); URINE PH 5.5 (4.5-7.5); URINE SPECIFIC GRAVITY 1.012 (1.000-1.030); UROBILINOGEN NEG (NEG); ZZUR CULT IF INDIC CLEAN CATCH NO
[2017-01-02 13:08] LABS: BASO % 0.2 %; BASO ABS # 0.01 K/uL (0-0.2); COMPLETE YES; EOS % 0.5 %; IG% 0.3 %; LYMPH % 30.3 %; MEAN CELL VOLUME 89.9 fL (80-100); MEAN CORPUSCULAR HEMOGLOBIN 30.8 pg (25-34); MEAN CORPUSCULAR HGB CONC 34.3 g/dl (32-36); MEAN PLATELET VOLUME 11.3 fL (7.4-10.4); MONO % 8.6 %; NEUT % 60.1 %; PLATELET COUNT 172 K/uL (130-400); RED BLOOD COUNT 4.45 M/uL (4.2-5.4); WHITE BLOOD COUNT 6.61 K/uL (4.8-10.8)
--- NOTE | 2017-01-02 13:17 | EMERGENCY ROOM VISIT NOTE ---
History Report prepared by [place]: Jak Martínez Under the Supervision of: Dr. Kendra Damico M.D. First contact with patient: 12:43 Chief Complaint: FLANK PAIN Stated Complaint: SEVERE PAIN LWR LEFT SIDE, PREG. TEST WAS POSITIVE History of Present Illness The patient is a 26 year old female who presents to the Emergency Room with complaints of persistent severe left flank pain that started at 0700 this morning. She had similar pain past last week that was more mild and resolved on its own. She had two Tylenol this morning that did help with the pain. There is some radiation to the left lower abdomen. The patient also complains of nausea & vomiting this morning. She denies vaginal bleeding or discharge, or changes in her bowels. She has a small amount of burning with urination that is not consistent with past UTIs. The patient had three positive home tests six days ago. She has had two past vaginal deliveries. P:2 LNMP was December 11. She denies any history of ectopic . Source of History: patient Onset: 0700 this morning Position: back (left flank) Symptom Intensity: severe Timing: other (persistent) Modifying Factors (Relieving): tylenol Associated Symptoms: + abdominal pain, + nausea, + urinary symptoms (burning ), + vomiting Review of Systems See HPI for pertinent positives & negatives. A total of 10 systems reviewed and were otherwise negative. Past Medical & Surgical Medical Problems: (1) Bipolar Disorder, Unspecified (2) Chondromalacia Patellae (3) Diab Anayeli Wo Compl, Type Ii Or Unspec Type, Uncontrolled (4) Tobacco Use Disorder Family History Cancer Gallbladder disease Social History Smoking Status: Current Every Day Smoker Alcohol Use: none Marital Status: Occupation Status: employed Current/Historical Medications No Active Prescriptions or Reported Meds Allergies Coded Allergies: Adhesives (Unverified Allergy, Mild, RASH, 01/02/17) Nickel (Unverified Allergy, Mild, UNKNOWN, 01/02/17) Physical Exam Vital Signs Date Time Temp Pulse Resp B/P Pulse Ox O2 Delivery O2 Flow Rate FiO2 01/02/17 14:42 60 16 108/61 99 Room Air 01/02/17 12:38 37.1 75 18 111/66 99 Room Air Physical Exam Vital signs reviewed. General: Well-appearing female, in no significant distress. HEENT: No scleral icterus, PERRLA, neck supple. Atraumatic. Cardiovascular: Regular rate and rhythm, no extra sounds. Pulmonary: Clear to auscultation bilaterally, normal work of breathing. Abdomen: Left lower quadrant tenderness, no rebound no guarding. Soft, nondistended, positive bowel sounds. Musculoskeletal: Atraumatic, no peripheral edema. No CVA tenderness. Neurologic: Patient awake alert and oriented x 3 Skin: Warm, dry, no rash Medical Decision & Procedures ER Provider Diagnostic Interpretation: Radiology results as stated below per my review and radiologist interpretation: ECTOPIC ULTRASOUND. (Transabdominal and endovaginal scanning) CLINICAL HISTORY: Left flank pain. Positive test. COMPARISON STUDY: Pelvic ultrasound dated 02/10/2016 FINDINGS: The uterus measured 9.6 x 4.9 x 5.1 cm. No intrauterine gestational sac was visualized. The right ovary measured 30 x 14 x 19 mm. The left ovary measured 29 x 17 x 3 mm. There was a ringlike structure within the left adnexal region measuring 24 mm. Given the clinical history, this could represent an ectopic . Clinical correlation is advocated. Correlation with quantitative beta hCGs is recommended. IMPRESSION: 1. No intrauterine gestational sac identified 2. Normal right ovary 3. 24 mm ringlike structure adjacent to the left ovary. Given the clinical findings, this could indicate an ectopic . Correlation with quantitative beta hCGs is recommended. Gynecological consultation is recommended Electronically signed by: Marck Paez M.D. 01/02/2017 2:17 PM Dictated Date/Time: 01/02/2017 2:13 PM Laboratory Results 01/02/17 12:55 Red Blood Count 4.45, Mean Corpuscular Volume 89.9, Mean Corpuscular Hemoglobin 30.8, Mean Corpuscular Hemoglobin Concent 34.3, Mean Platelet Volume 11.3, Neutrophils (%) (Auto) 60.1, Lymphocytes (%) (Auto) 30.3, Monocytes (%) (Auto) 8.6, Eosinophils (%) (Auto) 0.5, Basophils (%) (Auto) 0.2, Neutrophils # (Auto) 3.98, Lymphocytes # (Auto) 2.00, Monocytes # (Auto) 0.57, Eosinophils # (Auto) 0.03, Basophils # (Auto) 0.01 01/02/17 12:55 Test 01/02/17 12:50 01/02/17 12:55 Urine Color YELLOW Urine Appearance CLEAR (CLEAR) Urine pH 5.5 (4.5-7.5) Urine Specific [place] 1.012 (1.000-1.030) Urine Protein NEG (NEG) Urine Glucose (UA) NEG (NEG) Urine Ketones NEG (NEG) Urine Occult Blood NEG (NEG) Urine Nitrite NEG (NEG) Urine Bilirubin NEG (NEG) Urine Urobilinogen NEG (NEG) Urine Leukocyte Esterase NEG (NEG) White Blood Count 6.61 K/uL (4.8-10.8) Red Blood Count 4.45 M/uL (4.2-5.4) Hemoglobin 13.7 g/dL (12.0-16.0) Hematocrit 40.0 % (37-47) Mean Corpuscular Volume 89.9 fL (80-100) Mean Corpuscular Hemoglobin 30.8 pg (25-34) Mean Corpuscular Hemoglobin Concent 34.3 g/dl (32-36) Platelet Count 172 K/uL (130-400) Mean Platelet Volume 11.3 fL (7.4-10.4) Neutrophils (%) (Auto) 60.1 % Lymphocytes (%) (Auto) 30.3 % Monocytes (%) (Auto) 8.6 % Eosinophils (%) (Auto) 0.5 % Basophils (%) (Auto) 0.2 % Neutrophils # (Auto) 3.98 K/uL (1.4-6.5) Lymphocytes # (Auto) 2.00 K/uL (1.2-3.4) Monocytes # (Auto) 0.57 K/uL (0.11-0.59) Eosinophils # (Auto) 0.03 K/uL (0-0.5) Basophils # (Auto) 0.01 K/uL (0-0.2) RDW Standard Deviation 44.5 fL (36.4-46.3) RDW Coefficient of Variation 13.5 % (11.5-14.5) Immature Granulocyte % (Auto) 0.3 % Immature Granulocyte # (Auto) 0.02 K/uL (0.00-0.02) Anion Gap 7.0 mmol/L (3-11) Est Creatinine Clear Calc Drug Dose 106.3 ml/min Estimated GFR () 144.0 Estimated GFR (Non- 124.3 BUN/Creatinine Ratio 17.6 (10-20) Calcium Level 8.8 mg/dl (8.5-10.1) Total Bilirubin 0.2 mg/dl (0.2-1) Direct Bilirubin < 0.1 mg/dl (0-0.2) Aspartate Amino Transf (AST/SGOT) 10 U/L (15-37) Alanine Aminotransferase (ALT/SGPT) 15 U/L (12-78) Alkaline Phosphatase 38 U/L (45-117) Total Protein 7.2 gm/dl (6.4-8.2) Albumin 4.0 gm/dl (3.4-5.0) Human Chorionic Gonadotropin, Quant 1267 mIU/mL Laboratory results per my review. Medications Administered Medications (Trade) Dose Ordered Sig/Blanca Route Start Time Stop Time Status Last Admin Dose Admin Sodium Chloride (Nss 1000ml) 1,000 ml @ 999 mls/hr Q1H1M STAT IV 01/02/17 12:44 01/02/17 13:44 DC 01/02/17 12:44 999 MLS/HR ED Course 1244: NSS 1000 ml @ 999 mls/hr. 1245: The patient was evaluated by my resident. 1300: Past medical records reviewed. The patient was evaluated in room C10. A complete history and physical examination was performed. 1427: The resident discussed the case with Dr. Malone Technical Testing Engineer. He will evaluate the patient. 1430: The resident updated the patient. 1500: Technical Testing Engineer is in the ED evaluating the patient. Medical Decision Differential diagnosis: Kidney stone, ovarian cyst, ectopic , UTI, pyelonephritis. This patient was evaluated and appeared to be in no significant distress. Physical examination reveals a tenderness to the left lower quadrant. Patient' s hCG is about 1200. Rh is positive. Ultrasound of the pelvis was performed and reveals a left adnexal cystic structure adjacent to the ovary concerning for an ectopic . The patient was informed of the findings and Dr. Malone of [employer] was consulted. He has evaluated the patient in the emergency department and they have decided on methotrexate therapy. Please refer to Dr. Malone's notes for further details. Consults Time Called: 1420 Consulting Physician: Dr. Malone Technical Testing Engineer Returned Call: [phone]: The resident discussed the case with Dr. Faisal, Technical Testing Engineer. He will evaluate the patient. Impression Primary Impression: Ectopic without intrauterine Scribe Attestation The scribe's documentation has been prepared under my direction and personally reviewed by me in its entirety. I confirm that the note above accurately reflects all work, treatment, procedures, and medical decision making performed by me. Departure Information Prescriptions No Active Prescriptions or Reported Meds Referrals Lindsey Carlson D.O. (PCP) Patient Instructions My [facility]
[2017-01-02 13:24] LABS: ALT/SGPT 15 U/L (12-78); AST/SGOT 10 U/L (15-37); BLOOD UREA NITROGEN 11 mg/dl (7-18); BUN/CREATININE RATIO 17.6 (10-20); CALCIUM 8.8 mg/dl (8.5-10.1); CARBON DIOXIDE 28 mmol/L (21-32); CHLORIDE 108 mmol/L (98-107); CREATININE 0.65 mg/dl (0.60-1.20); GLUCOSE 60 mg/dl (70-99); POTASSIUM 3.7 mmol/L (3.5-5.1); SODIUM 143 mmol/L (136-145)
[2017-01-02 13:32] LABS: MANUAL MICROSCOPIC REQUIRED? NO; REVIEW REQ? NO
[2017-01-02 13:41] LABS: ALKALINE PHOSPHATASE 38 U/L (45-117)
--- NOTE | 2017-01-02 14:18 | DIAGNOSTIC IMAGING REPORT ---
ECTOPIC ULTRASOUND. (Transabdominal and endovaginal scanning) CLINICAL HISTORY: Left flank pain. Positive test. COMPARISON STUDY: Pelvic ultrasound dated 02/10/2016 FINDINGS: The uterus measured 9.6 x 4.9 x 5.1 cm. No intrauterine gestational sac was visualized. The right ovary measured 30 x 14 x 19 mm. The left ovary measured 29 x 17 x 3 mm. There was a ringlike structure within the left adnexal region measuring 24 mm. Given the clinical history, this could represent an ectopic . Clinical correlation is advocated. Correlation with quantitative beta hCGs is recommended. IMPRESSION: 1. No intrauterine gestational sac identified 2. Normal right ovary 3. 24 mm ringlike structure adjacent to the left ovary. Given the clinical findings, this could indicate an ectopic . Correlation with quantitative beta hCGs is recommended. Gynecological consultation is recommended Electronically signed by: Marck Paez M.D. 01/02/2017 2:17 PM Dictated Date/Time: 01/02/2017 2:13 PM
[2017-01-02] MEDS ORDERED: METHOTREXATE SOD IM ONE (15:45)
--- NOTE | 2017-01-02 16:15 | EMERGENCY ROOM VISIT NOTE ---
History First contact with patient: 12:49 Chief Complaint: FLANK PAIN Stated Complaint: SEVERE PAIN LWR LEFT SIDE, PREG. TEST WAS POSITIVE History of Present Illness The patient is a 26 year old female who presents to the Emergency Room with complaints of LLQ pain, N/V since 7 AM . She had similar pain previous last week for 3 days starting 12/27 then subsequently resolved . Currently reports 10 /10 pain this morning. She took Tylenol 400 mg x2 , which gave her some relief. . She also reports multiple positive urine test as of 12/27. She denies urinary urgency frequency, dysuria. She denies vaginal bleeding, , vaginal discharge, movement, contractions. Patient reports hx of 2 normal Vaginal deliveries without complications. Patient reports no Pap smear in at least 4 years and has not been following regularly with OBGYN due to insurance issues. Past Medical/Surgical History Medical Problems: (1) Bipolar Disorder, Unspecified (2) Chondromalacia Patellae (3) Diab Anayeli Wo Compl, Type Ii Or Unspec Type, Uncontrolled (4) Tobacco Use Disorder Family History Cancer Gallbladder disease Social History Smoking Status: Current Every Day Smoker Alcohol Use: none Marital Status: Occupation Status: employed Current/Historical Medications No Active Prescriptions or Reported Meds Allergies Coded Allergies: Adhesives (Unverified Allergy, Mild, RASH, 01/02/17) Nickel (Unverified Allergy, Mild, UNKNOWN, 01/02/17) Physical Exam Vital Signs Date Time Temp Pulse Resp B/P Pulse Ox O2 Delivery O2 Flow Rate FiO2 01/02/17 16:33 101 100/60 100 Room Air 01/02/17 14:42 60 16 108/61 99 Room Air 01/02/17 12:38 37.1 75 18 111/66 99 Room Air Physical Exam GENERAL: alert, well appearing, well nourished, no distress, non-toxic EYE EXAM: normal conjunctiva, PERRL and EOM's grossly intact NECK: supple, no nuchal rigidity, no adenopathy, non-tender LUNGS: Clear to auscultation. Normal chest wall mechanics HEART: no murmurs, S1 normal and S2 normal ABDOMEN: Tender to palpation in LLQ, normo-active bowel sounds, no masses, no rebound or guarding. BACK: Back is symmetrical on inspection and there is no deformity, no midline tenderness, no CVA tenderness. SKIN: no rashes and no bruising UPPER EXTREMITIES: upper extremities are grossly normal. LOWER EXTREMITIES: No pitting edema. NEURO EXAM: Normal sensorium, cranial nerves II-XII grossly intact, normal speech, no gross weakness of arms, no gross weakness of legs. Medical Decision & Procedures ER Provider Diagnostic Interpretation: ECTOPIC ULTRASOUND. (Transabdominal and endovaginal scanning) CLINICAL HISTORY: Left flank pain. Positive test. COMPARISON STUDY: Pelvic ultrasound dated 02/10/2016 FINDINGS: The uterus measured 9.6 x 4.9 x 5.1 cm. No intrauterine gestational sac was visualized. The right ovary measured 30 x 14 x 19 mm. The left ovary measured 29 x 17 x 3 mm. There was a ringlike structure within the left adnexal region measuring 24 mm. Given the clinical history, this could represent an ectopic . Clinical correlation is advocated. Correlation with quantitative beta hCGs is recommended. IMPRESSION: 1. No intrauterine gestational sac identified 2. Normal right ovary 3. 24 mm ringlike structure adjacent to the left ovary. Given the clinical findings, this could indicate an ectopic . Correlation with quantitative beta hCGs is recommended. Gynecological consultation is recommended Laboratory Results 01/02/17 12:55 Red Blood Count 4.45, Mean Corpuscular Volume 89.9, Mean Corpuscular Hemoglobin 30.8, Mean Corpuscular Hemoglobin Concent 34.3, Mean Platelet Volume 11.3, Neutrophils (%) (Auto) 60.1, Lymphocytes (%) (Auto) 30.3, Monocytes (%) (Auto) 8.6, Eosinophils (%) (Auto) 0.5, Basophils (%) (Auto) 0.2, Neutrophils # (Auto) 3.98, Lymphocytes # (Auto) 2.00, Monocytes # (Auto) 0.57, Eosinophils # (Auto) 0.03, Basophils # (Auto) 0.01 01/02/17 12:55 Test 01/02/17 12:50 01/02/17 12:55 Urine Color YELLOW Urine Appearance CLEAR (CLEAR) Urine pH 5.5 (4.5-7.5) Urine Specific [place] 1.012 (1.000-1.030) Urine Protein NEG (NEG) Urine Glucose (UA) NEG (NEG) Urine Ketones NEG (NEG) Urine Occult Blood NEG (NEG) Urine Nitrite NEG (NEG) Urine Bilirubin NEG (NEG) Urine Urobilinogen NEG (NEG) Urine Leukocyte Esterase NEG (NEG) White Blood Count 6.61 K/uL (4.8-10.8) Red Blood Count 4.45 M/uL (4.2-5.4) Hemoglobin 13.7 g/dL (12.0-16.0) Hematocrit 40.0 % (37-47) Mean Corpuscular Volume 89.9 fL (80-100) Mean Corpuscular Hemoglobin 30.8 pg (25-34) Mean Corpuscular Hemoglobin Concent 34.3 g/dl (32-36) Platelet Count 172 K/uL (130-400) Mean Platelet Volume 11.3 fL (7.4-10.4) Neutrophils (%) (Auto) 60.1 % Lymphocytes (%) (Auto) 30.3 % Monocytes (%) (Auto) 8.6 % Eosinophils (%) (Auto) 0.5 % Basophils (%) (Auto) 0.2 % Neutrophils # (Auto) 3.98 K/uL (1.4-6.5) Lymphocytes # (Auto) 2.00 K/uL (1.2-3.4) Monocytes # (Auto) 0.57 K/uL (0.11-0.59) Eosinophils # (Auto) 0.03 K/uL (0-0.5) Basophils # (Auto) 0.01 K/uL (0-0.2) RDW Standard Deviation 44.5 fL (36.4-46.3) RDW Coefficient of Variation 13.5 % (11.5-14.5) Immature Granulocyte % (Auto) 0.3 % Immature Granulocyte # (Auto) 0.02 K/uL (0.00-0.02) Anion Gap 7.0 mmol/L (3-11) Est Creatinine Clear Calc Drug Dose 106.3 ml/min Estimated GFR () 144.0 Estimated GFR (Non- 124.3 BUN/Creatinine Ratio 17.6 (10-20) Calcium Level 8.8 mg/dl (8.5-10.1) Total Bilirubin 0.2 mg/dl (0.2-1) Direct Bilirubin < 0.1 mg/dl (0-0.2) Aspartate Amino Transf (AST/SGOT) 10 U/L (15-37) Alanine Aminotransferase (ALT/SGPT) 15 U/L (12-78) Alkaline Phosphatase 38 U/L (45-117) Total Protein 7.2 gm/dl (6.4-8.2) Albumin 4.0 gm/dl (3.4-5.0) Human Chorionic Gonadotropin, Quant 1267 mIU/mL Medications Administered Medications (Trade) Dose Ordered Sig/Blanca Route Start Time Stop Time Status Last Admin Dose Admin Sodium Chloride 1,000 ml @ 999 mls/hr Q1H1M STAT IV 01/02/17 12:44 01/02/17 13:44 DC 01/02/17 12:44 999 MLS/HR Methotrexate Sodium/Syringe (Methotrexate Sodium PF/Syringe) 3 ml @ 0 mls/min ONE ONCE IM 01/02/17 15:45 01/02/17 15:46 DC 01/02/17 16:30 75 MLS/MIN Medical Decision Differential diagnoses includes but is not limited to gastritis, peptic ulcer disease, GERD, gallbladder disease, pancreatitis, small bowel obstruction, acute coronary syndrome, pericarditis, ischemic bowel, irritable bowel disease, irritable bowel syndrome, appendicitis, diverticulitis, malignancy, hernia, urinary tract infection, torsion, /ectopic , perforation, trauma, infectious. 26 yo p/w LLQ pain , + UPT test at home, N/V , with LLQ tenderness on exam, afebrile, VSS CBC: unremarkable BMP: unremarkable UA: Negative B-HC Blood Type: A Positive, Antibody scrn, Negative TV U/S: 24 mm ringlike structure adjacent to the left ovary. Given the clinical findings, this could indicate an ectopic . Based on exam findings, Elevated HCG, TV U/S finding, Ectopic was strongly suspected. Dr. Malone ([facility]) was consulted for recommendations. After evaluation by Faisal Rendon, it was decided to give 75 mg MTX injection IM today with followup in [facility] January [id number]. Patient advised to call clinic tmr morning. Impression Primary Impression: Ectopic without intrauterine Departure Information Prescriptions No Active Prescriptions or Reported Meds Referrals Lindsey Carlson D.O. (PCP) Forms HOME CARE DOCUMENTATION FORM, IMPORTANT VISIT INFORMATION Patient Instructions Ectopic Preg Methotrexate Tx, My [facility] Additional Instructions -Please call [facility] tmr morning to confirm appointment -Please followup with [facility] clinic on , January 06, 2017 -If you experience worsening pain, fevers chills, or feel concerned, call OBGYN clinic or return to ED. Resident Tracking Resident Involvement: Resident Care Provided Care Provided: Adult ED
[2017-01-02 16:33] VITALS: BP 100/60; PULSE 101; O2SAT 100
--- NOTE | 2017-01-02 20:21 | GYNECOLOGICAL CONSULTATION ---
DATE OF CONSULTATION: 01/02/2017 Consult is placed by ER physician Kendra Damico MD HISTORY OF PRESENT ILLNESS: This is a 26-year-old, G2, P2, last menstrual period was 12/11/2016 who knew she was , presented to the Emergency Room with left lower quadrant pain. She denied nausea, vomiting, shortness of breath, chills or fever. She denied any bleeding. Beta hCG done showed hCG was about 1200. An ultrasound done showed uterus of 9 x 5 x5. The right ovary as well as left ovary appeared grossly normal. There was no gestational sac seen in the uterus; however a 24 mm ring-like structure was seen adjacent to the left ovary; this is suspicious for an ectopic . PAST MEDICAL HISTORY: 1. History of bipolar disorder. 2. History of chondromalacia. PAST SURGICAL HISTORY: None. SOCIAL HISTORY: The patient is a smoker. Denies drug, tobacco or alcohol use. FAMILY HISTORY: Noncontributory. OBSTETRIC AND GYNECOLOGIC HISTORY: The patient has 2 live infants, no history of ectopic or PID in the past. PHYSICAL EXAMINATION: VITAL SIGNS: Temperature 37.1, pulse 75, respirations 18, blood pressure 111/66. HEART: S1, S2, regular rhythm and rate. LUNGS: Clear to auscultation bilaterally. ABDOMEN: No guarding, no rebound. The patient, however, has tenderness on the left lower pelvis on palpation. No CVA tenderness. PELVIC: There is no blood in the vagina. Cervix appeared grossly normal. There is tenderness and fullness in the left adnexa. LABORATORIES: CBC showed hemoglobin of 13.7, hematocrit 40, platelets of 172,000. Complete chemistry showed a BUN of 11 and creatinine of 0.65. AST of 10, ALT of 15. ASSESSMENT AND PLAN: A 26-year-old, G2, P2 with possible ectopic of the left adnexa. Laboratories and sonographic findings have been reviewed and discussed with the patient. We have discussed surgery as well as medical management. The risks and benefits of both have been discussed. The patient wishes to try medical therapy. Her body surface area is 1.5. She therefore will be receiving 75 mg of methotrexate. She will follow up in the office on day 4 and day 7 and during this time we will continue to follow her hCG titers and labs. The patient knows that if her bleeding gets worse or was thought to have any bleeding to be called to the office or return back to the Emergency Room. We have discussed other ectopic precautions with the patient as well. The patient has agreed. We would therefore proceed with plan as discussed above. I have discussed this plan with the ER attending, Dr. Dmaico who has agreed with management and would discharge patient as per protocol.
== END 2017-01-02 17:25 | disposition home or self-care (01) ==
LOC: C.EDB 12:39 → C.EDC 17:25
DX: O00.90 Unspecified ectopic pregnancy without intrauterine pregnancy (principal); F31.9 Bipolar disorder, unspecified; E11.9 Type 2 diabetes mellitus without complications; M22.40 Chondromalacia patellae, unspecified knee; F17.210 Nicotine dependence, cigarettes, uncomplicated; Z80.9 Family history of malignant neoplasm, unspecified; Z83.79 Family history of other diseases of the digestive system

== ENCOUNTER 2017-02-01 09:27 | Emergency (ER) | payer OTHER ==
[~2017-02-01] VITALS: Ht 152.4 cm; Wt 56.3 kg
[2017-02-01 09:40] VITALS: TEMP 36.6; Ht 152.4 cm; Wt 56.3 kg
[2017-02-01 10:49] LABS: BASO % 0.1 %; BASO ABS # 0.01 K/uL (0-0.2); COMPLETE YES; EOS % 0.6 %; HEMATOCRIT 42.3 % (37-47); IG% 0.3 %; LYMPH % 29.7 %; LYMPH ABS # 2.12 K/uL (1.2-3.4); MEAN CELL VOLUME 91.6 fL (80-100); MEAN CORPUSCULAR HGB CONC 33.8 g/dl (32-36); MEAN PLATELET VOLUME 10.4 fL (7.4-10.4); MONO % 6.3 %; PLATELET COUNT 226 K/uL (130-400); RED BLOOD COUNT 4.62 M/uL (4.2-5.4); WHITE BLOOD COUNT 7.13 K/uL (4.8-10.8)
[2017-02-01 10:55] LABS: URINE APPEARANCE CLEAR (CLEAR); URINE BILIRUBIN NEG (NEG); URINE COLOR YELLOW; URINE EPITHELIAL CELL AUTO >30 /lpf (0-5); URINE NITRITE NEG (NEG); URINE PH 6.5 (4.5-7.5); UROBILINOGEN NEG (NEG)
[2017-02-01 11:09] LABS: CALCIUM 8.7 mg/dl (8.5-10.1); CREATININE 0.69 mg/dl (0.60-1.20)
[2017-02-01 11:12] LABS: MANUAL MICROSCOPIC REQUIRED? NO; REVIEW REQ? NO
--- NOTE | 2017-02-01 11:45 | DIAGNOSTIC IMAGING REPORT ---
Ectopic ultrasound (transabdominal and endovaginal scanning) CLINICAL HISTORY: vag bleed 8 weeks COMPARISON STUDY: 01/02/2017 FINDINGS: The uterus measured 8.4 x 3.9 x 4.7 cm. No intrauterine gestational sac is visualized.] Stripe measures 4 mm. The right ovary measures 25 x 20 x 17 mm and appears architecturally normal. The left ovary measures 24 x 17 x 34 mm. Abutting the left ovary is a thick-walled cystic lesion measuring 35 x 21 x 30 mm. Given the clinical history, this could represent an ectopic . There is a small amount of free fluid within the pelvis. IMPRESSION: 1. No evidence of intrauterine gestation 2. Thick-walled cystic lesion measuring 35 x 21 x 30 mm abutting the left ovary. Given the clinical history, this could represent an ectopic . 3. Small amount of free pelvic fluid. Electronically signed by: Marck Paez M.D. 02/01/2017 11:44 AM Dictated Date/Time: 02/01/2017 11:37 AM
[2017-02-01] MEDS ORDERED: OXYCODONE HCL IR 5 MG TAB (IMMEDIATE RELEASE) PO STA (12:07)
[2017-02-01 12:18] VITALS: BP 124/75; PULSE 65; O2SAT 96
[2017-02-01] MEDS ORDERED: OXYC1TAB3 PO (12:18)
--- NOTE | 2017-02-01 16:44 | EMERGENCY ROOM VISIT NOTE ---
History Report prepared by Mason: Shania Landis Under the Supervision of: Dr. Shawn Ybarra M.D. First contact with patient: 10:13 Chief Complaint: ABNORMAL LABS Stated Complaint: HCG LEVELS GOING UP, PAIN ON LT SIDE/ODOR IN BLOOD History of Present Illness The patient is a 26 year old female who presents to the Emergency Room with complaints of intermittent left lower quadrant abdominal pain that began one month ago, but started again yesterday. She currently rates her discomfort as a 6/10 in severity. The patient states that at the beginning of January she was diagnosed with an ectopic and has been following up with Dr. Malone at [facility]. She states that her HCG level on 01/20/17 was 279, but on 01/27/17 her HCG level was 302. The patient states that she was instructed to come back to the [facility] office on Tuesday for blood work, but she states that due to personal issues she was unable to get there. She states that she went in to the office today for blood work, but states that after she had the blood work drawn, she was instructed to come to the emergency department for repeat blood work and further testing, noting that they needed the results now. The patient states that she has been experiencing persistent vaginal bleeding for the past month, stating that she is passing the same amount of blood with her normal menstrual cycle. She states that she has been having intermittent left sided abdominal pain, and notes that on 01/17, she was instructed to go to the emergency department for her pain. The patient states that she never sought out medical help, because the severe pain had subsided. She states that she has been sexually active over the past month. The patient associates nausea with her symptoms, but denies any fever, vomiting, or burning with urination. She describes her abdominal pain as a sharp and dull pain, noting that the pain is worse than a normal menstrual cycle cramps. Source of History: patient Onset: one month ago Position: abdomen (LLQ) Symptom Intensity: 6/10 Quality: sharp, dull Timing: intermittent Associated Symptoms: + nausea, No fevers, No urinary symptoms, No vomiting Review of Systems See HPI for pertinent positives & negatives. A total of 10 systems reviewed and were otherwise negative. Past Medical & Surgical Medical Problems: (1) Bipolar Disorder, Unspecified (2) Chondromalacia Patellae (3) Diab Anayeli Wo Compl, Type Ii Or Unspec Type, Uncontrolled (4) Tobacco Use Disorder Family History Cancer Gallbladder disease Social History Smoking Status: Current Every Day Smoker Alcohol Use: none Marital Status: Occupation Status: employed Current/Historical Medications Scheduled PRN Oxycodone Ir (Roxicodone Ir), 5 MG PO Q4H PRN for Pain Allergies Coded Allergies: Adhesives (Unverified Allergy, Mild, RASH, 02/01/17) Nickel (Unverified Allergy, Mild, UNKNOWN, 02/01/17) Physical Exam Vital Signs Date Time Temp Pulse Resp B/P Pulse Ox O2 Delivery O2 Flow Rate FiO2 02/01/17 12:18 65 18 124/75 96 Room Air 02/01/17 11:49 58 18 121/87 99 Room Air 02/01/17 09:40 36.6 74 18 119/62 100 Room Air 02/01/17 09:31 74 18 119/62 100 Room Air Physical Exam Constitutional: Vital signs reviewed. Eyes: Pupils are equal round reactive to light. Conjunctiva are noninjected. ENT: Pharynx is clear without erythema or exudate. Mucous membranes are moist. Neck supple without meningeal signs. Respiratory: Clear to auscultation bilaterally. Breath sounds are equal bilaterally. Cardiovascular: Regular rate and rhythm. No rubs or gallops. GI: Left lower quadrant tenderness, no guarding. Soft, nondistended. Bowel sounds are present. Musculoskeletal: No peripheral edema. No lower extremity tenderness. Integumentary: No cyanosis. Neurological: The patient is awake and alert. No focal deficits. Psychiatric: Normal affect. Medical Decision & Procedures ER Provider Diagnostic Interpretation: US results as stated below per my review and radiologist interpretation. Ectopic ultrasound (transabdominal and endovaginal scanning) CLINICAL HISTORY: vag bleed 8 weeks COMPARISON STUDY: 01/02/2017 FINDINGS: The uterus measured 8.4 x 3.9 x 4.7 cm. No intrauterine gestational sac is visualized.] Stripe measures 4 mm. The right ovary measures 25 x 20 x 17 mm and appears architecturally normal. The left ovary measures 24 x 17 x 34 mm. Abutting the left ovary is a thick-walled cystic lesion measuring 35 x 21 x 30 mm. Given the clinical history, this could represent an ectopic . There is a small amount of free fluid within the pelvis. IMPRESSION: 1. No evidence of intrauterine gestation 2. Thick-walled cystic lesion measuring 35 x 21 x 30 mm abutting the left ovary. Given the clinical history, this could represent an ectopic . 3. Small amount of free pelvic fluid. Electronically signed by: Marck Paez M.D. 02/01/2017 11:44 AM Dictated Date/Time: 02/01/2017 11:37 AM Laboratory Results 02/01/17 10:38 Red Blood Count 4.62, Mean Corpuscular Volume 91.6, Mean Corpuscular Hemoglobin 31.0, Mean Corpuscular Hemoglobin Concent 33.8, Mean Platelet Volume 10.4, Neutrophils (%) (Auto) 63.0, Lymphocytes (%) (Auto) 29.7, Monocytes (%) (Auto) 6.3, Eosinophils (%) (Auto) 0.6, Basophils (%) (Auto) 0.1, Neutrophils # (Auto) 4.49, Lymphocytes # (Auto) 2.12, Monocytes # (Auto) 0.45, Eosinophils # (Auto) 0.04, Basophils # (Auto) 0.01 02/01/17 10:38 Test 02/01/17 10:38 02/01/17 10:44 White Blood Count 7.13 K/uL (4.8-10.8) Red Blood Count 4.62 M/uL (4.2-5.4) Hemoglobin 14.3 g/dL (12.0-16.0) Hematocrit 42.3 % (37-47) Mean Corpuscular Volume 91.6 fL (80-100) Mean Corpuscular Hemoglobin 31.0 pg (25-34) Mean Corpuscular Hemoglobin Concent 33.8 g/dl (32-36) Platelet Count 226 K/uL (130-400) Mean Platelet Volume 10.4 fL (7.4-10.4) Neutrophils (%) (Auto) 63.0 % Lymphocytes (%) (Auto) 29.7 % Monocytes (%) (Auto) 6.3 % Eosinophils (%) (Auto) 0.6 % Basophils (%) (Auto) 0.1 % Neutrophils # (Auto) 4.49 K/uL (1.4-6.5) Lymphocytes # (Auto) 2.12 K/uL (1.2-3.4) Monocytes # (Auto) 0.45 K/uL (0.11-0.59) Eosinophils # (Auto) 0.04 K/uL (0-0.5) Basophils # (Auto) 0.01 K/uL (0-0.2) RDW Standard Deviation 45.6 fL (36.4-46.3) RDW Coefficient of Variation 13.7 % (11.5-14.5) Immature Granulocyte % (Auto) 0.3 % Immature Granulocyte # (Auto) 0.02 K/uL (0.00-0.02) Anion Gap 5.0 mmol/L (3-11) Est Creatinine Clear Calc Drug Dose 98.9 ml/min Estimated GFR () 141.2 Estimated GFR (Non- 121.8 BUN/Creatinine Ratio 17.0 (10-20) Calcium Level 8.7 mg/dl (8.5-10.1) Human Chorionic Gonadotropin, Quant 73 mIU/mL Urine Color YELLOW Urine Appearance CLEAR (CLEAR) Urine pH 6.5 (4.5-7.5) Urine Specific [place] 1.020 (1.000-1.030) Urine Protein NEG (NEG) Urine Glucose (UA) NEG (NEG) Urine Ketones NEG (NEG) Urine Occult Blood 3+ (NEG) Urine Nitrite NEG (NEG) Urine Bilirubin NEG (NEG) Urine Urobilinogen NEG (NEG) Urine Leukocyte Esterase SMALL (NEG) Urine WBC (Auto) 5-10 /hpf (0-5) Urine RBC (Auto) >30 /hpf (0-4) Urine Hyaline Casts (Auto) 1-5 /lpf (0-5) Urine Epithelial Cells (Auto) >30 /lpf (0-5) Urine Bacteria (Auto) 1+ (NEG) Laboratory results as reviewed by me. Medications Administered Medications (Trade) Dose Ordered Sig/Blanca Route Start Time Stop Time Status Last Admin Dose Admin Oxycodone HCl (Roxicodone Immediate Rel Tab) 5 mg NOW STAT PO 02/01/17 12:07 02/01/17 12:09 DC 02/01/17 12:15 5 MG ED Course 1021: The patient was evaluated in room A11B. A complete history and physical exam was performed. 1202: I discussed the patients case with Dr. Segura, masonry teacher. After detailed discussion of the patient and test results, he states that the patient should follow up in the office tomorrow for repeat HCG. No acute intervention is needed at this time. 1207: Ordered Oxycodone HCl 5 mg PO. 1211: I reevaluated the patient and she is resting comfortably. I discussed the exam findings with her and her family and I discussed the treatment plan. She verbalized complete understanding and agreement. She will follow up with Ob /[facility] Goods Examiner tomorrow. She notes that she currently has slight pain in the left lower quadrant due to ultrasound. She states that the bleeding is unchanged for the last six days. I reviewed return instructions with her. She is ready to go home. Medical Decision This is a 26-year-old female who presents with left lower quadrant abdominal pain and vaginal bleeding. Differential diagnosis includes ectopic , hemoperitoneum, heterotopic , anemia, fibroids. I did perform a limited focused review of portions of the patient's old chart on the electronic medical record. The patient was seen here January [address] Malone for a possible ectopic in the left adnexa. She was treated with 75 mg of methotrexate and was supposed to follow up in the office in four days. Her last HCG was 1267. Her blood type was A+. I did evaluate the patient as noted above. The patient has had vaginal bleeding since she was diagnosed with an ectopic about a month ago. She states her left pelvic pain has been coming and going throughout the month but started again yesterday. Her bleeding is unchanged. She was sent here because the office told her that her hCG results would not be back for 3 days. IV access was established. I did order and personally review the patient's urinalysis as described above. It appears contaminated. She denies any urinary symptoms. I did order and review the patient's blood work as noted in the electronic medical record. She is not anemic. Her beta-hCG is 73. I did order an ultrasound of the pelvis. I did review the images myself as well as the radiology report as described above. She has a left adnexal cystic mass measuring 35 mm x 30 mm. This is enlarged since a month ago. I did discuss the test results with the patient. I did discuss the case with Dr. Segura of OB/ [facility]OMIC HISTOR[facility]. He did not feel the patient required surgery at this time. He recommended that the patient be discharged home to follow up tomorrow for another repeat hCG. He did state that she would be able to get results tomorrow and not in 3 days. I did discuss this with the patient was happy with this plan. She only complains of slight pain in the pelvis at this time which she attributes to the ultrasound. She was given OxyIR for pain and discharged with a prescription for OxyIR. I did give her strict instructions to return immediately or go to her nearest hospital should she have any worsening of her pain or bleeding or develop any other new symptoms. She was discharged in good condition. [place] Drug Monitoring Program Search Results: patient reviewed within database, no issues identified Consults Time Called: 1157 Consulting Physician: Dr. Segura, masonry teacher Returned Call: 1202 I discussed the patients case with Dr. Segura, masonry teacher. After detailed discussion of the patient and test results, he states that the patient should follow up in the office tomorrow for repeat HCG. No acute intervention is needed at this time. Impression Primary Impression: Ectopic Scribe Attestation The scribe's documentation has been prepared under my direct and personally reviewed by me in its entirety. I confirm that the note above accurately reflects all work, treatment, procedures, and medical decision making performed by me. Departure Information Dispostion Home / Self-Care Prescriptions Oxycodone Ir (Roxicodone Ir) 5 Mg Tab 5 MG PO Q4H Y for Pain, #20 TAB Prov: Shawn Ybarra M.D. 02/01/17 Referrals Lindsey Carlson D.O. (PCP) Forms HOME CARE DOCUMENTATION FORM, IMPORTANT VISIT INFORMATION, WORK / SCHOOL INSTRUCTIONS Patient Instructions ED Preg Ectopic Methotrexate Tx, My [facility] Additional Instructions You have been examined and treated today on an emergency basis only. This is not a substitute for, or an effort to provide, complete comprehensive medical care. It is impossible to recognize and treat all injuries or illnesses in a single emergency department visit. It is therefore important that you follow up closely with your LENS ASSISTANT doctor tomorrow for repeat hCG. Call as soon as possible for an appointment. Return or go to your nearest hospital immediately for worsening symptoms or if you develop fever, vomiting, sudden worsening of your pain or bleeding, lightheadedness or weakness or any other concerning symptoms. Avoid exertion or any intercourse. Problem Qualifiers Primary Impression: Ectopic Location of ectopic : ovarian Intrauterine status: without intrauterine Qualified Codes: O00.20 - Ovarian without intrauterine
== END 2017-02-01 12:26 | disposition home or self-care (01) ==
LOC: C.EDB 09:29 → C.EDA 12:26
DX: O00.20 Ovarian pregnancy without intrauterine pregnancy (principal); F31.9 Bipolar disorder, unspecified; E11.9 Type 2 diabetes mellitus without complications; F17.210 Nicotine dependence, cigarettes, uncomplicated; Z80.9 Family history of malignant neoplasm, unspecified; Z83.79 Family history of other diseases of the digestive system

== ENCOUNTER 2017-09-17 14:32 | Emergency (ER) | payer OTHER ==
[~2017-09-17] VITALS: Ht 154.9 cm; Wt 71.8 kg
[2017-09-17 14:38] VITALS: TEMP 36.9; Ht 154.9 cm; Wt 71.8 kg
[2017-09-17] MEDS ORDERED: ONDANSETRON 4MG OD TAB PO STA (14:44)
[2017-09-17] MEDS ORDERED: OXYCODONE HCL IR 5 MG TAB (IMMEDIATE RELEASE) PO STA (14:44)
--- NOTE | 2017-09-17 15:30 | DIAGNOSTIC IMAGING REPORT ---
LEFT KNEE 3 VIEWS HISTORY: L knee pain COMPARISON: None. FINDINGS: Slightly distracted transverse fracture through the mid patella. Small knee effusion. The distal femur and proximal tibia/fibula are intact. Soft tissues are unremarkable. No radiopaque foreign bodies. IMPRESSION: Slightly distracted transverse fracture through the mid patella. Electronically signed by: Teddy Segovia M.D. 09/17/2017 3:28 PM Dictated Date/Time: 09/17/2017 3:27 PM
--- NOTE | 2017-09-17 15:32 | DIAGNOSTIC IMAGING REPORT ---
LEFT FOREARM 2 VIEWS HISTORY: L for earn/wrist pain COMPARISON: None. FINDINGS: There is a transverse fracture through the distal shaft of the ulna which demonstrates up to 3 mm of displacement. The radius appears intact. Soft tissue swelling throughout the left forearm. No radiopaque foreign bodies. No elbow effusion. IMPRESSION: Mildly displaced fracture within the distal shaft of the left ulna. Electronically signed by: Teddy Segovia M.D. 09/17/2017 3:30 PM Dictated Date/Time: 09/17/2017 3:29 PM
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
[2017-09-17] MEDS ORDERED: OXYC1TAB3 PO (16:39)
[2017-09-17 17:01] VITALS: BP 108/66; PULSE 77; O2SAT 98
[2017-09-17] MEDS ORDERED: IBUPROFEN 800 MG TAB PO STA (17:02)
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
== END 2017-09-17 17:17 | disposition home or self-care (01) ==
LOC: EDBD 14:32 → C.EDC 14:35
DX: S82.032A Displaced transverse fracture of left patella, initial encounter for closed fracture (principal); S52.692A Other fracture of lower end of left ulna, initial encounter for closed fracture; S16.1XXA Strain of muscle, fascia and tendon at neck level, initial encounter; S00.83XA Contusion of other part of head, initial encounter; S06.0X0A Concussion without loss of consciousness, initial encounter; V49.40XA Driver injured in collision with unspecified motor vehicles in traffic accident, initial encounter; Y93.89 Activity, other specified; Y99.8 Other external cause status; E11.9 Type 2 diabetes mellitus without complications; F17.200 Nicotine dependence, unspecified, uncomplicated

== ENCOUNTER → 2017-09-23 | Day surgery (SDC) | payer OTHER ==
[2017-09-22 13:50] VITALS: Ht 153 cm; Wt 70.5 kg
[~2017-09-23] VITALS: Ht 153 cm; Wt 70.5 kg
[~2017-09-23] MED LIST changes: +ACET-1256 PO; +AMOX500C3 PO; +ATROPINE SULFATE 0.1 MG/ML 5ML SYR IV PRN; +BUPIVACAINE 0.25% 30 ML VIAL ONE; +BUPIVACAINE 0.5 % 5 MG/1 ML PF 10ML VIAL ONE; +CEFAZOLIN SOD 1 GM VIAL ONE; +DEXAMETHASONE SOD INJ 4 MG/ML VIAL ONE; +EpHEDrine SULFATE INJ 50 MG/ML AMP IV PRN; +EpHEDrine SULFATE INJ 50 MG/ML AMP ONE; +FENTANYL CITRATE INJ 50 MCG/1 ML 2 ML VIAL IV PRN; +FENTANYL CITRATE INJ 50 MCG/1 ML 2 ML VIAL ONE; +HYDROmorphone INJ 2 MG/ML SYR/VIAL ONE; +LACTATED RINGER'S 1000ML 1,000 ML IV SCH; +LACTATED RINGER'S 1000ML 500 ML IV SCH; +LIDOCAINE HCL 2% 2 ML VIAL (20MG/ML) ONE; +MIDAZOLAM HCL 1 MG/ML 2ML VIAL ONE; +NURSING VERBAL MED ORDER ONE; -ONDA4TAB10 SL; +ONDANSETRON INJ 2 MG/ML 2 ML VIAL IV PRN; +ONDANSETRON INJ 2 MG/ML 2 ML VIAL ONE; +OXYC-57 PO; +OXYCODONE/ACETAMINOPHEN 5-325 TAB PO PRN; +OXYCODONE/ACETAMINOPHEN 5-325 TAB PO SCH; +PERCOCET HOME PACK PO ONE; +PHENYLEPHRINE 100MCG/ML 5ML SYR ONE; +PROPOFOL IV EMULSION 10 MG/ML 20 ML VIAL IV ONE; +ROPIVACAINE 0.5% 5 MG/ML 30 ML VIAL ONE; +SODIUM CHLORIDE 0.9% INJ 10 ML VIAL ONE
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
[2017-09-23 11:29] VITALS: BP 132/71; PULSE 75; TEMP 36.8; O2SAT 98
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
--- NOTE | 2017-09-23 18:47 | Discharge Instructions ---
Discharge Instructions Date of Service Sep 23, 2017. Admission Reason for Admission: Left Patella Fracture, Left Ulna Fracture Discharge Discharge Diagnosis / Problem: Left Patella Fracture; Left Ulna Fracture Discharge Goals Goal(s): Decrease discomfort, Improve function Activity Recommendations Activity Limitations: per Instructions/Follow-up section Lifting Limitations: none Weightbearing Status: Left weightbearing (as tolerated of left lower extremity) No use of Left wrist May weight bear on Left leg only with knee immobilzer in place . Instructions / Follow-Up Instructions / Follow-Up Keep dressings clean and dry Elevate the arm and leg under a pillow or two, to help with swelling. If you may loosen the billie bandage on your arm if it is too tight. Do this if you are having numbness in the fingers, increased swelling or discoloration in the fingers. If swelling persists in the hand/wrist, keep it elevated above your head. You may change your dressing on your left leg in 48 hours. Redress the wound with 4x4 gauze. You may shorten the billie wrap to go around your knee only but you must use and billie wrap around the knee for now. You must wear the immobilizer when ambulating. You may remove for bathing or when lying in bed. It is preferred that you sleep with it on at night. NO BENDING OF THE LEFT KNEE You can put as much weight on your left leg when ambulating. Limit weight on your left forearm. You may flex/extend your fingers as much as you like. You may shower in 48 hours. You can get the knee wound wet. Do not soak it. No tub baths. Do not scrub the wound, do not put creams or ointments on the wound. Place a waterproof covering over the arm splint when doing so. Follow up with Dr Sargent in 10-14 days. Call for an appointment. [phone] Current Hospital Diet Patient's current hospital diet: regular Discharge Diet Recommended Diet: Regular Diet Procedures Procedures Performed: Left Patella Fracture Open Reduction Internal Fixation; Left Ulna Fracture Open Reduction Internal Fixation Pending Studies Studies pending at discharge: no Medical Emergencies . Who to Call and When: Medical Emergencies: If at any time you feel your situation is an emergency, please call 911 immediately. . Non-Emergent Contact Non-Emergency issues call your: Surgeon Call Non-Emergent contact if: temperature is above 101.5, your pain is worsening, wound has increased drainage, you have any medication questions . "Provider Documentation" section prepared by Kurt Sargent. . VTE Core Measure Inpt VTE Proph given/why not?: Treatment not indicated [place] Drug Monitoring Program Search Results: patient reviewed within database, no issues identified
--- NOTE | 2017-09-23 19:06 | DIAGNOSTIC IMAGING REPORT ---
INTRAOPERATIVE LEFT KNEE 2 VIEWS CLINICAL HISTORY: Patellar fracture. COMPARISON STUDY: 09/17/2017 FINDINGS: 2 intraoperative fluoroscopic spot images are provided for interpretation. 47 seconds of fluoroscopic time was utilized. There is internal fixation of the patellar fracture utilizing 2 screws, and a tension wire. IMPRESSION: Internally fixated patellar fracture. Electronically signed by: Marck Paez M.D. 09/23/2017 7:05 PM Dictated Date/Time: 09/23/2017 7:03 PM
--- NOTE | 2017-09-23 19:08 | DIAGNOSTIC IMAGING REPORT ---
INTRAOPERATIVE LEFT WRIST 2 VIEWS CLINICAL HISTORY: Left bone fracture COMPARISON STUDY: 09/17/2017 FINDINGS: 2 intraoperative fluoroscopic spot images are provided for interpretation. 47 seconds of fluoroscopic time was utilized. The patient's distal ulnar fracture has been fixated with a metallic plate and 6 screws. The fracture appears in near normal anatomic alignment. There is minimal comminution. IMPRESSION: Internally fixated distal ulnar fracture. Electronically signed by: Marck Paez M.D. 09/23/2017 7:06 PM Dictated Date/Time: 09/23/2017 7:05 PM
--- NOTE | 2017-09-23 19:16 | Anesthesiology Progress Note ---
Anesthesia Post Op Note Date & Time Sep 23, 2017 at 19:16 Vital Signs Pain Intensity: 2 Vital Signs Past 12 Hours Date Time Temp Pulse Resp B/P (MAP) Pulse Ox O2 Delivery O2 Flow Rate FiO2 09/23/17 19:03 36.4 16 09/23/17 19:03 95 16 99 09/23/17 19:01 120/65 09/23/17 18:58 89 13 09/23/17 18:58 88 13 99 09/23/17 18:56 129/70 09/23/17 18:53 103 22 09/23/17 18:53 103 22 99 09/23/17 18:51 150/101 09/23/17 18:48 99 12 98 09/23/17 18:48 99 12 09/23/17 18:46 126/65 09/23/17 18:43 78 17 100 09/23/17 18:43 78 17 09/23/17 18:41 126/65 09/23/17 18:38 79 16 09/23/17 18:38 78 16 100 09/23/17 18:36 118/62 09/23/17 18:33 75 26 100 09/23/17 18:33 76 26 09/23/17 18:31 121/61 09/23/17 18:28 36.3 71 14 121/61 100 10 09/23/17 11:29 36.8 75 18 132/71 (91) 98 Room Air Notes Mental Status: alert / awake / arousable, participated in evaluation Pt Amnestic to Procedure: Yes Nausea / Vomiting: adequately controlled Pain: adequately controlled Airway Patency, RR, SpO2: stable & adequate BP & HR: stable & adequate Hydration State: stable & adequate Anesthetic Complications: no major complications apparent
[2017-09-23 19:17] VITALS: BP 139/72; PULSE 110; TEMP 36.9; O2SAT 96
[2017-09-23 19:45] VITALS: BP 132/85; PULSE 100; O2SAT 97
[2017-09-23 20:20] VITALS: BP 140/86; PULSE 101; TEMP 36.4; O2SAT 96
[2017-09-23 21:00] VITALS: BP 135/84; PULSE 100; TEMP 36.3; O2SAT 99
== END | disposition home or self-care (01) ==
LOC: C.ACU 10:45
PROVIDERS: ATTEND Orthopaedic Surgery
DX: S52.602A Unspecified fracture of lower end of left ulna, initial encounter for closed fracture (principal); S82.032A Displaced transverse fracture of left patella, initial encounter for closed fracture; V89.2XXA Person injured in unspecified motor-vehicle accident, traffic, initial encounter; F31.9 Bipolar disorder, unspecified; E11.9 Type 2 diabetes mellitus without complications; F17.200 Nicotine dependence, unspecified, uncomplicated; E66.9 Obesity, unspecified; Z68.30 Body mass index [BMI] 30.0-30.9, adult

== ENCOUNTER 2017-10-17 15:44 | Emergency (ER) | payer OTHER ==
[~2017-10-17] VITALS: Ht 152.4 cm; Wt 72.4 kg
[~2017-10-17 15:44] MED LIST changes: -ACET-1256 PO; -ATROPINE SULFATE 0.1 MG/ML 5ML SYR IV PRN; -BUPIVACAINE 0.25% 30 ML VIAL ONE; -BUPIVACAINE 0.5 % 5 MG/1 ML PF 10ML VIAL ONE; -CEFAZOLIN SOD 1 GM VIAL ONE; -DEXAMETHASONE SOD INJ 4 MG/ML VIAL ONE; -EpHEDrine SULFATE INJ 50 MG/ML AMP IV PRN; -EpHEDrine SULFATE INJ 50 MG/ML AMP ONE; -FENTANYL CITRATE INJ 50 MCG/1 ML 2 ML VIAL IV PRN; -FENTANYL CITRATE INJ 50 MCG/1 ML 2 ML VIAL ONE; -HYDROmorphone INJ 2 MG/ML SYR/VIAL ONE; -LACTATED RINGER'S 1000ML 1,000 ML IV SCH; -LACTATED RINGER'S 1000ML 500 ML IV SCH; -LIDOCAINE HCL 2% 2 ML VIAL (20MG/ML) ONE; -MIDAZOLAM HCL 1 MG/ML 2ML VIAL ONE; -NURSING VERBAL MED ORDER ONE; -ONDANSETRON INJ 2 MG/ML 2 ML VIAL IV PRN; -ONDANSETRON INJ 2 MG/ML 2 ML VIAL ONE; -OXYCODONE/ACETAMINOPHEN 5-325 TAB PO PRN; -OXYCODONE/ACETAMINOPHEN 5-325 TAB PO SCH; -PERCOCET HOME PACK PO ONE; -PHENYLEPHRINE 100MCG/ML 5ML SYR ONE; -PROPOFOL IV EMULSION 10 MG/ML 20 ML VIAL IV ONE; -ROPIVACAINE 0.5% 5 MG/ML 30 ML VIAL ONE; -SODIUM CHLORIDE 0.9% INJ 10 ML VIAL ONE
[2017-10-17 15:50] VITALS: BP 138/81; PULSE 102; TEMP 37.3; O2SAT 99; Ht 152.4 cm; Wt 72.4 kg
--- NOTE | 2017-10-17 16:21 | EMERGENCY ROOM VISIT NOTE ---
History First contact with patient: 15:50 Chief Complaint: OTHER COMPLAINT Stated Complaint: CAST NEEDS REMOVED, MIGHT BE GETTING INFECTED History of Present Illness The patient is a 27 year old female who presents to the Emergency Room requesting cast removal from her left arm. The patient reports that she has gotten her cast wet several times since having surgery performed on 09/23/18. She reports that she called [facility] and they sent her here for cast removal because there was no nurse in the office to remove it this afternoon. He is concerned that she could have a developing infection at the surgical site. She denies any pain, swelling, paresthesias or numbness of the hand or fingers. The patient is [id number]. Review of Systems 10 system review was performed and was negative except for pertinent positives and negatives as indicated in history of present illness Past Medical/Surgical History Medical Problems: (1) Bipolar Disorder, Unspecified (2) Chondromalacia Patellae (3) Diab Anayeli Wo Compl, Type Ii Or Unspec Type, Uncontrolled (4) Tobacco Use Disorder Family History Cancer Gallbladder disease Social History Smoking Status: Current Every Day Smoker Alcohol Use: none Marital Status: Occupation Status: employed Current/Historical Medications Scheduled Amoxicillin (Amoxil), 500 MG PO BID Scheduled PRN Oxycodone/Acetaminophen 5MG/325MG (Percocet 5MG/325MG), 1-2 TABLETS PO Q4-6H PRN for Pain Physical Exam Vital Signs Date Time Temp Pulse Resp B/P (MAP) Pulse Ox O2 Delivery O2 Flow Rate FiO2 10/17/17 15:50 37.3 102 18 138/81 99 Room Air Physical Exam CONSTITUTIONAL: Healthy and well nourished. Alert and oriented X 3 with positive affect. HEENT: Normocephalic, atraumatic. Pupils equal, round and reactive. MUSCULOSKELETAL: Examination of the left upper extremity shows an intact cast without any obvious compromise of the cast. The patient has no peripheral edema. Capillary refill of the fingers is less than 2 seconds. No proximal edema. INTEGUMENTARY: No rash or other significant dermatologic conditions noted. NEUROLOGIC: No focal neurologic deficits noted. Medical Decision & Procedures ED Course Patient history and physical exam were performed. Nurse's notes were reviewed. The patient was advised that I would not remove the cast unless I receive approval from her orthopedic surgeon or other provider at [facility]. I did call and speak with 2 other nurses staff who reports that she has been instructed to come to their office several times, but for some reason has had excuses why she can get there, including weather and not having transportation. She was instructed to come to the office today before 3:30, however was a no-show. She was not told to come to the emergency Department for cast removal. They requested that the patient go directly to their office to be seen at their urgent care clinic which started shortly. This information was relayed to the patient, and voiced understanding of all discharge instructions. Medical Decision Medication Reconcilliation Current Medication List: was personally reviewed by me Blood Pressure Screening Patient's blood pressure: Normal blood pressure Impression Primary Impression: Left arm pain Additional Impression: S/P ORIF left ulna fracture Departure Information Dispostion Home / Self-Care Referrals Lindsey Carlson D.O. (PCP) Kurt Sargent M.D. Forms HOME CARE DOCUMENTATION FORM, IMPORTANT VISIT INFORMATION Patient Instructions My [facility] Additional Instructions Go directly to [facility] for cast removal and wound check. Problem Qualifiers
[2017-10-17] MEDS ORDERED: ACET-1256 PO (16:26)
== END 2017-10-17 16:25 | disposition home or self-care (01) ==
LOC: C.EDB 15:45 → C.EDD 16:25
DX: M79.602 Pain in left arm (principal); Z98.890 Other specified postprocedural states; E11.9 Type 2 diabetes mellitus without complications; F17.200 Nicotine dependence, unspecified, uncomplicated

== ENCOUNTER 2018-02-13 18:42 | Emergency (ER) | payer OTHER ==
[~2018-02-13] VITALS: Ht 152.4 cm; Wt 75.8 kg
[~2018-02-13 18:42] MED LIST changes: +ACET-1256 PO; -AMOX500C3 PO; -OXYC-57 PO
[2018-02-13 18:45] VITALS: TEMP 37.1; Ht 152.4 cm; Wt 75.8 kg
--- NOTE | 2018-02-13 19:11 | EMERGENCY ROOM VISIT NOTE ---
ED Visit Note First contact with patient: 18:51 CHIEF COMPLAINT: Left wrist injury HISTORY OF PRESENT ILLNESS: This 27-year-old femur patient presents to the emergency department, ambulatory, complaining of pain in the left wrist after striking it against a concrete wall 4 days ago. 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 She states she walked out of her room, striking the ulnar aspect of the wrist against a wall. She does have history of ulnar fracture and has a plate and 6 screws in the left arm. This was in September of last year. The patient is able to move their wrist. The patient states the pain is sharp and 9/10. No laceration, no weakness. No numbness or tingling. The patient denies any other injury. The patient is able to move their fingers and elbow without difficulty. The patient has taken 3000 mg of Tylenol and 1000 mg ibuprofen, alternating these doses of these medications every 2-3 hours for the pain without relief. REVIEW OF SYSTEMS: A 6 system review of systems was performed with positives and pertinent negatives in the HPI. ALLERGIES: Adhesives, nickel MEDICATIONS: None PMH: None SOCIAL HISTORY: The patient lives locally with her fianc. She denies drug, alcohol use. She admits to smoking one half pack of cigarettes per day. PHYSICAL EXAM: Vital Signs: Reviewed Nurse's notes, vital signs stable. GENERAL : This is a 27-year-old white female, in no acute distress, but appears to be in pain, well-developed, well-nourished. NEURO: Alert and oriented to person place and time. Normal sensation to light and sharp touch. MUSCULOSKELETAL: There is no deformity of the left wrist. There is a surgical scar on the ulnar aspect of the wrist. There is tenderness and edema over the medial aspect of the wrist. There is no snuff box tenderness. Range of motion is limited due to pain. There is no tenderness of the elbow, hand or fingers. Educational Assistant Teacher strength 4/5. Radial pulse 2+. SKIN: Normal and intact. The hand is warm and well perfused with capillary refill less than 2 seconds. RADIOLOGY: L WRIST W/NAVICULAR MIN 3 VIEWS CLINICAL HISTORY: 27 years-old Female presenting with wrist pain for three days. TECHNIQUE: Frontal, bilateral oblique, lateral, and scaphoid views of the left wrist were obtained. COMPARISON: 09/23/2017. FINDINGS: Redemonstration of plate and screw fixation across the distal ulna the prior fracture. A fracture plane is minimally apparent. No evidence of hardware complication. No acute fracture or malalignment. The scaphoid is normal appearing. No advanced degenerative change. No radiographic soft tissue abnormality. IMPRESSION: 1. No acute osseous injury. 2. Expected appearance of the plate and screw fixation of the distal ulna with minimally apparent fracture plane. No hardware complication. Electronically signed by: Kurt Kaufman M.D. 02/13/2018 7:16 PM Dictated Date/Time: 02/13/2018 7:14 PM EMERGENCY DEPARTMENT COURSE: I examined the patient. I discussed with her the risks associated with overdosing on Tylenol and or ibuprofen. I advised her of the potential risk for liver or kidney failure or stomach ulcers. The patient states "do not lecture me". An X-ray of the left wrist was reviewed by myself and radiologist and showed no acute fracture. Neurovascular status rechecked and intact. The patient requested some Motrin for her pain. I advised her that because she admitted to taking high doses frequently that I would not be giving her p.o. Motrin due to the potential risks of side effects. I did offer the patient Voltaren gel and she was agreeable. Voltaren gel was applied, and the tube was sent home with the patient to be used at home. Discharge instructions reviewed. The patient was discharged home in good condition. I attest that I have personally reviewed the patient's current medication list. Patient was found to have normal blood pressure on screening and does not require follow-up. Etiologies such as soft tissue injury, fracture, dislocation, neurovascular compromise, compartment syndrome, as well as others were entertained. DIAGNOSIS: Left wrist pain The chart was completed utilizing [employer] voice recognition software. Grammatical errors, random word insertions, pronoun errors, and incomplete sentences are an occasional consequence of this system due to software limitations, ambient noise, and hardware issues. Any formal questions or concerns about the content, text, or information contained within the body of this dictation should be directly addressed to the provider for clarification. Current/Historical Medications Scheduled PRN Acetaminophen (Tylenol), 2,000 MG PO Q6H PRN for Pain Allergies Coded Allergies: Adhesives (Verified Allergy, Mild, RASH, 09/22/17) Nickel (Verified Allergy, Mild, RASH, 09/22/17) No Known Drug Allergy (Verified Allergy, Unknown, NONE, 09/22/17) Vital Signs Date Time Temp Pulse Resp B/P (MAP) Pulse Ox O2 Delivery O2 Flow Rate FiO2 02/13/18 19:50 68 18 109/62 98 Room Air 02/13/18 18:45 37.1 78 18 109/71 96 Medications Administered Medications (Trade) Dose Ordered Sig/Blanca Route Start Time Stop Time Status Last Admin Dose Admin Diclofenac Sodium (Voltaren 1% Top Gel) 1 appln NOW STAT EXT 02/13/18 19:26 02/13/18 19:28 DC 02/13/18 19:44 1 APPLN Departure Information Impression Primary Impression: Wrist pain, left Dispostion Home / Self-Care Condition GOOD Referrals Lindsey Carlson D.O. (PCP) Kurt Sargnet M.D. Patient Instructions ED Contusion Upper Ext, My [facility] Additional Instructions You were seen in the emergency department today for left wrist pain. As discussed, x-ray did not reveal any acute fracture. I do suspect a contusion/ bruise as the cause of your symptoms. Ibuprofen(Motrin, Advil) may be used for fever or pain. Use 600mg every six hours as needed. Take with food. Avoid using more than 2400mg in a 24 hour period. Do not use 2400mg per day for more than three consecutive days without physician direction. Prolonged inappropriate use can lead to stomach upset or ulcers. (AND/OR) Acetaminophen(Tylenol) may be used for fever or pain. Use 1000mg every six hours as needed. Avoid using more than 3000mg in a 24 hour period. Use Voltaren gel up to 4x per day for pain. Ice compresses for 20 minutes at a time four times daily for 2-3 days. Use the wrist splint you have at home for comfort. Rest and elevate your injury. Return to the ER immediately for any numbness, tingling, severe pain, extreme swelling in the extremity or as needed. Call your orthopedic surgeon for further complications or ongoing pain. Follow-up with your primary care physician in 2 to 3 days for a recheck of your current condition.
--- NOTE | 2018-02-13 19:17 | DIAGNOSTIC IMAGING REPORT ---
L WRIST W/NAVICULAR MIN 3 VIEWS CLINICAL HISTORY: 27 years-old Female presenting with wrist pain for three days. TECHNIQUE: Frontal, bilateral oblique, lateral, and scaphoid views of the left wrist were obtained. COMPARISON: 09/23/2017. FINDINGS: Redemonstration of plate and screw fixation across the distal ulna the prior fracture. A fracture plane is minimally apparent. No evidence of hardware complication. No acute fracture or malalignment. The scaphoid is normal appearing. No advanced degenerative change. No radiographic soft tissue abnormality. IMPRESSION: 1. No acute osseous injury. 2. Expected appearance of the plate and screw fixation of the distal ulna with minimally apparent fracture plane. No hardware complication. Electronically signed by: Kurt Kaufman M.D. 02/13/2018 7:16 PM Dictated Date/Time: 02/13/2018 7:14 PM
[2018-02-13] MEDS ORDERED: DICLOFENAC SOD 1% GEL 100 GM TUBE EXT STA (19:26)
[2018-02-13 19:50] VITALS: BP 109/62; PULSE 68; O2SAT 98
== END 2018-02-13 19:57 | disposition home or self-care (01) ==
LOC: C.EDB 18:43 → C.EDD 19:57
DX: M25.532 Pain in left wrist (principal); W22.8XXA Striking against or struck by other objects, initial encounter; Y92.89 Other specified places as the place of occurrence of the external cause; Y99.0 Civilian activity done for income or pay; F17.210 Nicotine dependence, cigarettes, uncomplicated; Z91.048 Other nonmedicinal substance allergy status

== ENCOUNTER 2018-05-15 11:19 | Emergency (ER) | payer OTHER ==
[~2018-05-15] VITALS: Ht 154.9 cm; Wt 76.5 kg
[2018-05-15 11:22] VITALS: TEMP 37; O2SAT 100; Ht 154.9 cm; Wt 76.5 kg
[2018-05-15] MEDS ORDERED: SODIUM CHLORIDE 0.9% 500ML 500 ML IV STA (12:09)
[2018-05-15] MEDS ORDERED: SODIUM CHLORIDE 0.9% 1000ML 1,000 ML IV STA (12:09)
[2018-05-15 12:45] LABS: BASO % 0.1 %; BASO ABS # 0.01 K/uL (0-0.2); EOS % 0.6 %; EOS ABS # 0.05 K/uL (0-0.5); HEMATOCRIT 41.7 % (37-47); IG# 0.02 K/uL (0.00-0.02); LYMPH % 25.1 %; LYMPH ABS # 2.24 K/uL (1.2-3.4); MEAN CELL VOLUME 88.5 fL (80-100); MEAN CORPUSCULAR HEMOGLOBIN 29.7 pg (25-34); MEAN CORPUSCULAR HGB CONC 33.6 g/dl (32-36); MEAN PLATELET VOLUME 11.1 fL (7.4-10.4); MONO % 5.6 %; NEUT % 68.4 %; NEUT ABS # 6.12 K/uL (1.4-6.5); PLATELET COUNT 205 K/uL (130-400); RED CELL DISTRIBUTION WIDTH CV 13.7 % (11.5-14.5); RED CELL DISTRIBUTION WIDTH SD 44.8 fL (36.4-46.3); WHITE BLOOD COUNT 8.94 K/uL (4.8-10.8)
[2018-05-15 13:02] LABS: ALBUMIN 3.9 gm/dl (3.4-5.0); CALCIUM 9.5 mg/dl (8.5-10.1); CREATININE 0.66 mg/dl (0.60-1.20); POTASSIUM 3.7 mmol/L (3.5-5.1); TOTAL PROTEIN 8.2 gm/dl (6.4-8.2)
--- NOTE | 2018-05-15 14:10 | DIAGNOSTIC IMAGING REPORT ---
GALLBLADDER-ABD LIMITED CLINICAL HISTORY: RUQ abd pain pain. Nausea. TECHNIQUE: Ultrasound COMPARISON STUDY: None FINDINGS: Normal gallbladder. Common bile duct 4 mm. Liver is uniform. Pancreas and right kidney are unremarkable. Right kidney is negative for hydronephrosis. IMPRESSION: Normal study The above report was generated using voice recognition software. It may contain grammatical, syntax or spelling errors. Electronically signed by: Tom Mauro M.D. 05/15/2018 2:08 PM Dictated Date/Time: 05/15/2018 2:07 PM
--- NOTE | 2018-05-15 14:22 | DIAGNOSTIC IMAGING REPORT ---
ULTRASOUND OF THE PELVIS CLINICAL HISTORY: Left pelvic pain. . COMPARISON STUDY: Pelvic ultrasound dated 06/30/2017. TECHNIQUE: Real-time, grayscale, and color flow sonography of the pelvis is performed both transabdominally and endovaginally. Images are reviewed in the transverse and longitudinal planes. FINDINGS: Uterus: The uterus is normal in size and echotexture, measuring 8.8 x 4.6 x 5.4 cm. Endometrium: No uterine gestation is identified. The endometrium is normal in appearance, and the endometrial stripe is normal in thickness measuring up to 1.5 cm. Ovaries: The ovaries are normal in size and morphology. The right ovary measures 2.8 x 1.3 x 2.0 cm and the left ovary measures 3.1 x 2.3 x 2.6 cm. There are bilateral ovarian follicles. A 2.5 cm corpus luteum is noted on the left. Normal Doppler waveforms are shown within both ovaries. Pelvis: There is trace free fluid in the cul-de-sac. No concerning adnexal lesion is seen. IMPRESSION: 1. No intrauterine gestation is identified. This could simply reflect an intrauterine gestation that is too small to visualize or a missed . Although there is no concerning adnexal lesion identified, in the setting of a positive test without a confirmed intrauterine gestation ectopic would be impossible to exclude. Close clinical, laboratory, and sonographic follow-up is recommended. 2. There is trace nonspecific free fluid in the cul-de-sac. 3. A corpus luteum is noted on the left. Electronically signed by: Solis Lopez M.D. 05/15/2018 2:20 PM Dictated Date/Time: 05/15/2018 2:13 PM
[2018-05-15] MEDS ORDERED: FAMOTIDINE 20 MG TAB PO ONE (15:45)
[2018-05-15 16:06] VITALS: PULSE 68
[2018-05-15 16:29] VITALS: BP 118/71
--- NOTE | 2018-05-15 16:53 | EMERGENCY ROOM VISIT NOTE ---
History Report prepared by Mason: Ingrid Gibson Under the Supervision of: Dr. Kendra Damico M.D. First contact with patient: 12:03 Chief Complaint: NAUSEA Stated Complaint: 4WEEKS 3 DAYS , STOMACH PAIN AND NAUSEA History of Present Illness The patient is a 27 year old female who presents to the Emergency Room with complaints of constant nausea starting yesterday. The patient states that she is 4 weeks . She states that she took 3 at home tests and then went last week to [facility] where they did a blood test to determine it. She reports that starting yesterday each time she eats she has upper abdominal pain. She states that yesterday it came on while she was eating [employer] pizza , wings, and breadsticks. She states that she felt full even though she normally eats much more. The patient states that since then she had been nauseous. She states that she has tried eating buttered toast and crackers, but each time it makes the upper abdominal pain come on. She notes that initially makes her feel better when she bites it, but then the pain comes on. The patient complains of intermittent vomiting and lower abdominal pain. The patient notes that she has had 3 miscarriages and 1 ectopic . She notes that each has had this lower abdominal pain with it and is nervous it may be another ectopic . She notes that she has an appointment with her OB- [facility] on June 06. The patient denies vaginal bleeding. Source of History: patient Onset: yesterday Quality: other (nausea) Timing: constant Modifying Factors (Worsening): eating Associated Symptoms: + vomiting, + abdominal pain Note: The patient denies vaginal bleeding. Review of Systems See HPI for pertinent positives & negatives. A total of 10 systems reviewed and were otherwise negative. Past Medical & Surgical Medical Problems: (1) Bipolar Disorder, Unspecified (2) Chondromalacia Patellae (3) Diab Anayeli Wo Compl, Type Ii Or Unspec Type, Uncontrolled (4) History of miscarriage (5) Tobacco Use Disorder Family History Cancer Gallbladder disease Social History Smoking Status: Current Every Day Smoker Alcohol Use: none Marital Status: Housing Status: lives with family Occupation Status: employed Current/Historical Medications No Active Prescriptions or Reported Meds Allergies Coded Allergies: Adhesives (Verified Allergy, Mild, RASH, 05/15/18) Nickel (Verified Allergy, Mild, RASH, 05/15/18) No Known Drug Allergy (Verified Allergy, Unknown, NONE, 05/15/18) Physical Exam Vital Signs Date Time Temp Pulse Resp B/P (MAP) Pulse Ox O2 Delivery O2 Flow Rate FiO2 05/15/18 16:29 118/71 05/15/18 16:06 68 05/15/18 14:08 68 110/71 05/15/18 12:24 76 05/15/18 11:22 37.0 71 16 122/82 100 Room Air Physical Exam Vital signs reviewed. General: Well-appearing, in no significant distress. HEENT: No scleral icterus, PERRLA, neck supple. Atraumatic. Cardiovascular: Regular rate and rhythm, no extra sounds. Pulmonary: Clear to auscultation bilaterally, normal work of breathing. Abdomen: Obese, Soft, mild epigastric tenderness and mild LLQ tenderness, nondistended, positive bowel sounds. No rebound or guarding. Musculoskeletal: Atraumatic, no peripheral edema. Neurologic: Patient awake alert and oriented x 3 Skin: Warm, dry, no rash Medical Decision & Procedures ER Provider Diagnostic Interpretation: Radiology results as stated below per my review and radiologist interpretation: GALLBLADDER-ABD LIMITED CLINICAL HISTORY: RUQ abd pain pain. Nausea. TECHNIQUE: Ultrasound COMPARISON STUDY: None FINDINGS: Normal gallbladder. Common bile duct 4 mm. Liver is uniform. Pancreas and right kidney are unremarkable. Right kidney is negative for hydronephrosis. IMPRESSION: Normal study The above report was generated using voice recognition software. It may contain grammatical, syntax or spelling errors. Electronically signed by: Tom Mauro M.D. 05/15/2018 2:08 PM Dictated Date/Time: 05/15/2018 2:07 PM ULTRASOUND OF THE PELVIS CLINICAL HISTORY: Left pelvic pain. . COMPARISON STUDY: Pelvic ultrasound dated 06/30/2017. TECHNIQUE: Real-time, grayscale, and color flow sonography of the pelvis is performed both transabdominally and endovaginally. Images are reviewed in the transverse and longitudinal planes. FINDINGS: Uterus: The uterus is normal in size and echotexture, measuring 8.8 x 4.6 x 5.4 cm. Endometrium: No uterine gestation is identified. The endometrium is normal in appearance, and the endometrial stripe is normal in thickness measuring up to 1.5 cm. Ovaries: The ovaries are normal in size and morphology. The right ovary measures 2.8 x 1.3 x 2.0 cm and the left ovary measures 3.1 x 2.3 x 2.6 cm. There are bilateral ovarian follicles. A 2.5 cm corpus luteum is noted on the left. Normal Doppler waveforms are shown within both ovaries. Pelvis: There is trace free fluid in the cul-de-sac. No concerning adnexal lesion is seen. IMPRESSION: 1. No intrauterine gestation is identified. This could simply reflect an intrauterine gestation that is too small to visualize or a missed . Although there is no concerning adnexal lesion identified, in the setting of a positive test without a confirmed intrauterine gestation ectopic would be impossible to exclude. Close clinical, laboratory, and sonographic follow-up is recommended. 2. There is trace nonspecific free fluid in the cul-de-sac. 3. A corpus luteum is noted on the left. Electronically signed by: Solis Lopez M.D. 05/15/2018 2:20 PM Dictated Date/Time: 05/15/2018 2:13 PM Laboratory Results 05/15/18 12:27 Red Blood Count 4.71, Mean Corpuscular Volume 88.5, Mean Corpuscular Hemoglobin 29.7, Mean Corpuscular Hemoglobin Concent 33.6, Mean Platelet Volume 11.1, Neutrophils (%) (Auto) 68.4, Lymphocytes (%) (Auto) 25.1, Monocytes (%) (Auto) 5.6, Eosinophils (%) (Auto) 0.6, Basophils (%) (Auto) 0.1, Neutrophils # (Auto) 6.12, Lymphocytes # (Auto) 2.24, Monocytes # (Auto) 0.50, Eosinophils # (Auto) 0.05, Basophils # (Auto) 0.01 05/15/18 12:27 Test 05/15/18 12:27 05/15/18 12:29 05/15/18 14:10 White Blood Count 8.94 K/uL (4.8-10.8) Red Blood Count 4.71 M/uL (4.2-5.4) Hemoglobin 14.0 g/dL (12.0-16.0) Hematocrit 41.7 % (37-47) Mean Corpuscular Volume 88.5 fL (80-100) Mean Corpuscular Hemoglobin 29.7 pg (25-34) Mean Corpuscular Hemoglobin Concent 33.6 g/dl (32-36) Platelet Count 205 K/uL (130-400) Mean Platelet Volume 11.1 fL (7.4-10.4) Neutrophils (%) (Auto) 68.4 % Lymphocytes (%) (Auto) 25.1 % Monocytes (%) (Auto) 5.6 % Eosinophils (%) (Auto) 0.6 % Basophils (%) (Auto) 0.1 % Neutrophils # (Auto) 6.12 K/uL (1.4-6.5) Lymphocytes # (Auto) 2.24 K/uL (1.2-3.4) Monocytes # (Auto) 0.50 K/uL (0.11-0.59) Eosinophils # (Auto) 0.05 K/uL (0-0.5) Basophils # (Auto) 0.01 K/uL (0-0.2) RDW Standard Deviation 44.8 fL (36.4-46.3) RDW Coefficient of Variation 13.7 % (11.5-14.5) Immature Granulocyte % (Auto) 0.2 % Immature Granulocyte # (Auto) 0.02 K/uL (0.00-0.02) Anion Gap 7.0 mmol/L (3-11) Est Creatinine Clear Calc Drug Dose 121.9 ml/min Estimated GFR () 142.3 Estimated GFR (Non- 122.8 BUN/Creatinine Ratio 16.2 (10-20) Calcium Level 9.5 mg/dl (8.5-10.1) Total Bilirubin 0.4 mg/dl (0.2-1) Direct Bilirubin 0.1 mg/dl (0-0.2) Aspartate Amino Transf (AST/SGOT) 15 U/L (15-37) Alanine Aminotransferase (ALT/SGPT) 19 U/L (12-78) Alkaline Phosphatase 50 U/L (45-117) Total Protein 8.2 gm/dl (6.4-8.2) Albumin 3.9 gm/dl (3.4-5.0) Lipase 212 U/L (73-393) Urine Color YELLOW Urine Appearance CLEAR (CLEAR) Urine pH 5.0 (4.5-7.5) Urine Specific [place] 1.017 (1.000-1.030) Urine Protein NEG (NEG) Urine Glucose (UA) NEG (NEG) Urine Ketones NEG (NEG) Urine Occult Blood NEG (NEG) Urine Nitrite NEG (NEG) Urine Bilirubin NEG (NEG) Urine Urobilinogen NEG (NEG) Urine Leukocyte Esterase TRACE (NEG) Urine WBC (Auto) 1-5 /hpf (0-5) Urine RBC (Auto) 0-4 /hpf (0-4) Urine Hyaline Casts (Auto) 0 /lpf (0-5) Urine Epithelial Cells (Auto) >30 /lpf (0-5) Urine Bacteria (Auto) 2+ (NEG) Urine Test POS (NEG) Human Chorionic Gonadotropin, Quant 230 mIU/mL Laboratory results per my review. Medications Administered Medications (Trade) Dose Ordered Sig/Blanca Route Start Time Stop Time Status Last Admin Dose Admin Sodium Chloride 500 ml @ 999 mls/hr Q31M STAT IV 05/15/18 12:09 05/15/18 12:39 DC 05/15/18 12:44 999 MLS/HR Sodium Chloride 1,000 ml @ 200 mls/hr Q5H STAT IV 05/15/18 12:09 05/15/18 16:44 DC 05/15/18 12:09 200 MLS/HR Famotidine (Pepcid Tab) 20 mg NOW ONCE PO 05/15/18 15:45 05/15/18 15:46 DC 05/15/18 15:46 20 MG ED Course 1207: Past medical records reviewed. The patient was evaluated in room C4. A complete history and physical examination was performed. 1209: Ordered NSS 1000 ml @ 200 mls/hr IV, NSS 500 ml @ 999 mls/hr IV. 1545: Ordered Famotidine 20 mg PO. 1555: Upon reevaluation, the patient appeared to have improvement of her symptoms. I discussed findings with her. She verbalized agreement of the treatment plan. The patient was discharged home. Medical Decision Differential diagnosis: Etiologies such as appendicitis, diverticulitis, PUD, biliary pathology, UTI, pancreatitis, obstruction, mesenteric ischemia, aortic pathology, infections, inflammatory bowel disease, renal colic, ectopic , ovarian cyst, threatened miscarriage, as well as others were entertained. This patient was evaluated and appeared to be in no significant distress. IV access was obtained and laboratory work was drawn. Patient was given Pepcid 20 mg po. She was hydrated with normal saline solution. Ultrasound of the right upper quadrant was performed and reveals no evidence of acute cholecystitis. Ultrasound the pelvis was performed and reveals evidence of a corpus luteal cyst however there is no gestational sac identified. Patient's quantitative beta hCG is 230. She states one week ago her beta hCG was 70. I am concerned that this may represent an abnormal rise, however the patient has no vaginal bleeding. There is no evidence of an adnexal mass. She was advised to contact her [employer] EXECUTIVE tomorrow for short-term follow-up and repeat laboratory work. She will return to the ED for worsening of symptoms or any medical concerns. Medication Reconcilliation Current Medication List: was personally reviewed by me Blood Pressure Screening Patient's blood pressure: Normal blood pressure Blood pressure disposition: Did not require urgent referral Impression Primary Impression: Early stage of Additional Impression: Gastritis Scribe Attestation The scribe's documentation has been prepared under my direction and personally reviewed by me in its entirety. I confirm that the note above accurately reflects all work, treatment, procedures, and medical decision making performed by me. Departure Information Dispostion Home / Self-Care Prescriptions No Active Prescriptions or Reported Meds Referrals Lindsey Carlson D.O. (PCP) Forms HOME CARE DOCUMENTATION FORM, IMPORTANT VISIT INFORMATION Patient Instructions My [facility] Additional Instructions Diagnosis: Early , gastritis hormone level is 230 Pepcid 20 mg twice daily as needed. Maintain a helathy diet, exclude greasy and spicy foods. Avoid coffee, alcohol and soda. Drink plenty of water and continue vitamins. Follow up with OBGYN tomorrow by phone for further direction. Return to the ED for worsening of symptoms or any medical concerns. Problem Qualifiers
--- NOTE | 2018-05-17 14:06 | Pharmacy Progress Note ---
ED Pharmacist Culture FollowUp Date of Service: May 17, 2018. Called patient regarding urine culture growing Klebsiella resistant to nitrofurantoin. Prescription for keflex 500 mg BID x 7 days called to [facility] at the patient's request. Recommended follo-up with outpatient provider since patient is . Case discussed with Dr. Jewell, who is the prescribing provider.
== END 2018-05-15 16:28 | disposition home or self-care (01) ==
LOC: C.EDB 11:20 → C.EDC 16:28
DX: Z34.01 Encounter for supervision of normal first pregnancy, first trimester (principal); K29.70 Gastritis, unspecified, without bleeding; F31.9 Bipolar disorder, unspecified; E11.9 Type 2 diabetes mellitus without complications; F17.210 Nicotine dependence, cigarettes, uncomplicated; Z91.048 Other nonmedicinal substance allergy status

== ENCOUNTER 2019-01-23 19:48 | Inpatient (IN) ==
[2019-01-23] MEDS ORDERED: LACTATED RINGER'S 1,000 ML IV PRN ×2 (20:33→22:13)
[2019-01-23] MEDS ORDERED: PENICILLIN G POTASSIUM 3 MU in DEXTROSE 5% 100 ML IV PRN (20:33)
[2019-01-23] MEDS ORDERED: PENICILLIN G POTASSIUM 6 MU in DEXTROSE 5% 250 ML IV STA (20:33)
[2019-01-23] MEDS ORDERED: OXYTOCIN 30 UNITS/500 ML BAG IV PRN (20:33)
--- NOTE | 2019-01-23 20:37 | Labor Progress Brief Note ---
Date of Service January 23, 2019 FHR; CAT1 ctx 5-6mins VE by Nurse; /-3 plan Admit start antibx. for GBS Results & Data Vital Signs (Past 12 Hours) Vital Signs Temp Pulse Resp BP 01/23/19 20:02 37.0 C 82 18 118/65 01/23/19 19:54 82 118/65
[2019-01-23 21:05] LABS: Hemoglobin 11.9 g/dL (12.0-16.0); Mean Corpuscular Volume 86.4 fL (80-100); Mean Platelet Volume 11.1 fL (7.4-10.4); Platelet Count 156 K/uL (130-400); RDW Coefficient of Variation 14.4 % (11.5-14.5); RDW Standard Deviation 44.9 fL (36.4-46.3); Red Blood Count 4.05 M/uL (4.2-5.4); White Blood Count 9.75 K/uL (4.8-10.8)
[2019-01-23] MEDS ORDERED: NALOXONE HCL 1 MG in SODIUM CHLORIDE 0.9% 1000ML 1,000 ML IV PRN (22:13)
[2019-01-23] MEDS ORDERED: fentaNYL 2MCG/ML ROPIV 1.25MG/ML 100 ML BAG EPI PRN (22:13)
[2019-01-23] MEDS ORDERED: NALOXONE HCL 0.4 MG/1 ML VIAL/CARP IV PRN (22:13)
[2019-01-23] MEDS ORDERED: DiphenhydrAMINE HCL 50 MG/ML VIAL IV PRN (22:13)
[2019-01-23] MEDS ORDERED: ONDANSETRON INJ 2 MG/ML 2 ML VIAL IV PRN (22:13)
[2019-01-23] MEDS ORDERED: BUPIVACAINE 0.25% 30 ML VIAL ONE (22:13)
[2019-01-23] MEDS ORDERED: NALBUPHINE HCL INJ 10 MG/ML AMP IV PRN (22:13)
[2019-01-23] MEDS ORDERED: ePHEDrine sulfate 50 MG/ML AMP IV PRN (22:13)
[2019-01-23] MEDS ORDERED: fentaNYL citrate 100 MCG/2 ML VIAL ONE (22:14)
[2019-01-23] MEDS ORDERED: ePHEDrine sulfate 50 MG/ML AMP ONE (22:14)
[2019-01-23] MEDS ORDERED: fentaNYL 2MCG/ML ROPIV 1.25MG/ML 100 ML BAG EPI ONE (22:15)
--- NOTE | 2019-01-23 22:22 | Anesthesiology Consultation ---
Date of Service January 23, 2019 Assessment & Plan (1) Encounter for pre-operative examination: Chart Review Chart Review: Patient NOT seen in Pre Admission Testing and Acceptable Risk for Labor Epidural Consults Requested none History Height/Weight Height: 5 ft 1 in Weight: 81.193 kg Allergies Allergy/AdvReac Type Severity Reaction Status Date / Time adhesive Allergy Mild RASH Verified 01/14/19 09:06 nickel Allergy Mild RASH Verified 01/14/19 09:06 Medications Home Medications Medication Instructions Recorded Confirmed Last Taken vit no.[id number] 1 tab PO DAILY 12/22/18 01/14/19 01/12/19 08:00 [ Vitamin] Active Medications Generic Name Dose Route Start Last Admin Trade Name Freq PRN Reason Stop Dose Admin Lactated Ringer's 1,000 mls @ 999 mls/hr 01/23/19 20:33 01/23/19 21:19 Lr IV 02/22/19 20:32 0 mls/hr .Q1H1M PRN Infusion (Pre-Anesthesia) Past Medical History Medical History Depression Past Surgical History Surgical History S/P wrist surgery Past Anesthesia History No Hx of Anesthesia Complications and No Family Hx of Anesthesia Complications History of PONV No Motion Sickness Screening History of Motion Sickness: No Social History Smoking Status: Current every day smoker tobacco type: cigarettes Smoking cigarettes per day: 5 Hx Alcohol Use: No Hx Substance Use: No substance use type: does not use Exercise / Class Metabolic Activity II 4-5 Yardwork/Stairs/Walk up hill Physical Exam Vital Signs Last Vital Signs Temp 37.0 C 01/23/19 20:02 Pulse 82 01/23/19 20:02 Resp 18 01/23/19 20:02 BP 118/65 01/23/19 20:02 Testing Laboratory Results 01/23/19 20:53
[2019-01-23] MEDS: LACTATED RINGER'S 1,000 ML IV SCH (23:19)
[2019-01-24] MEDS: LACTATED RINGER'S 1,000 ML IV SCH (01:26)
--- NOTE | 2019-01-24 02:10 | Labor Progress Brief Note ---
Date of Service January 24, 2019 Nurse unable to evaluate heart tracing VE; 9cm with bulging membranes AROM- clear fluid and scalp placed FHR was 70-80;s 9cm/100/-1 Pt placed on left side with oxygen FHR quickly returned to baseline anticipate VD Results & Data Vital Signs (Past 12 Hours) Vital Signs Temp Pulse Resp BP Pulse Ox 01/24/19 02:01 57 L 99 01/24/19 02:00 62 92 01/24/19 01:56 57 L 99 01/24/19 01:54 71 92 01/24/19 01:51 59 L 99 01/24/19 01:50 63 98/53 L 01/24/19 01:46 63 98 01/24/19 01:41 59 L 98 01/24/19 01:36 63 99 01/24/19 01:34 57 L 93/51 L 01/24/19 01:31 55 L 99 01/24/19 01:27 73 94 01/24/19 01:26 66 97 01/24/19 01:21 60 97 01/24/19 01:19 61 105/60 01/24/19 01:16 58 L 97 01/24/19 01:11 59 L 98 01/24/19 01:06 65 102/63 100 01/24/19 01:04 56 L 92 01/24/19 01:01 53 L 97 01/24/19 00:56 50 L 97 01/24/19 00:51 59 L 98 01/24/19 00:49 59 L 107/58 L 01/24/19 00:46 49 L 97 01/24/19 00:41 69 97 01/24/19 00:36 64 98 01/24/19 00:34 65 106/63 01/24/19 00:31 59 L 99 01/24/19 00:26 56 L 99 01/24/19 00:21 64 100 01/24/19 00:19 57 L 99/54 L 01/24/19 00:16 61 99 01/24/19 00:11 68 99 01/24/19 00:06 62 99 01/24/19 00:05 36.4 C L 18 01/24/19 00:04 61 105/67 01/24/19 00:01 69 99 01/23/19 23:56 62 99 01/23/19 23:51 69 100 01/23/19 23:50 57 L 101/58 L 01/23/19 23:46 62 100 01/23/19 23:41 71 100 01/23/19 23:36 62 99 01/23/19 23:34 58 L 98/62 L 01/23/19 23:31 70 100 01/23/19 23:26 60 100 01/23/19 23:21 66 100/58 L 100 01/23/19 23:16 64 99 01/23/19 23:11 91 H 98 01/23/19 23:06 69 99 01/23/19 23:01 75 99 01/23/19 22:56 71 100 01/23/19 22:51 77 100 01/23/19 22:47 68 108/63 01/23/19 22:46 64 99 01/23/19 22:44 69 110/63 01/23/19 22:41 73 100 01/23/19 22:40 65 112/67 01/23/19 22:38 61 111/69 01/23/19 22:36 63 100 01/23/19 22:35 71 116/75 01/23/19 22:32 72 121/67 01/23/19 22:31 74 100 01/23/19 22:27 65 117/70 01/23/19 22:26 75 100 01/23/19 20:02 37.0 C 82 18 118/65 01/23/19 19:54 82 118/65
[2019-01-24] MEDS ORDERED: METHYLERGONOVINE MALEATE 0.2 MG/ML AMP ONE (02:47)
[2019-01-24] MEDS ORDERED: METHYLERGONOVINE MALEATE 0.2 MG/ML AMP IM ONE (02:50)
[2019-01-24] MEDS ORDERED: miSOPROStol 200 MCG TAB PR ONE (02:50)
[2019-01-24] MEDS ORDERED: HYDROCORTISONE ACETATE 25 MG SUPP PR PRN (02:50)
[2019-01-24] MEDS ORDERED: OXYTOCIN 30 UNITS/500 ML BAG IV PRN (02:50)
[2019-01-24] MEDS ORDERED: BENZOCAINE 20% AER SPR 82.5 GM CAN EXT PRN (02:50)
[2019-01-24] MEDS ORDERED: BISACODYL 10 MG SUPP PR PRN (02:50)
[2019-01-24] MEDS ORDERED: SUPERCREAM 0.870% 15 GM JAR EXT PRN (02:50)
[2019-01-24 03:13] LABS: Base Excess Cord Arterial Bld -2.5 mEq/L (-9-1.8); CO2 Cord Arterial Blood 50 mmHg (39.1-73.5); HCO3 Cord Arterial Blood 24 mmol/L (19.7-28.5); PO2 Cord Arterial Blood 16.6 % (4.1-31.7); pH Cord Arterial Blood 7.31 (7.1-7.38)
[2019-01-24 03:19] LABS: Base Excess Cord Venous Blood -3.2 mEq/L (-7.7-1.9); Cord Venous Blood HCO3 22 mmol/L (18.4-26.8); Cord Venous Blood PCO2 40 mmHg (30.4-57.2); Cord Venous Blood PO2 20 mmHg (14.1-43.3); Cord Venous Blood pH 7.36 (7.20-7.44); O2 Saturation Cord Venous Bld < 68.0 % (<68)
--- NOTE | 2019-01-24 03:29 | History and Physical Report ---
DATE OF ADMISSION: 01/23/2019 HISTORY OF PRESENT ILLNESS: The patient is a 28-year-old G7, P2, due date 01/20/2019 making her 40 weeks and 4 days today. The patient presented to Labor and Delivery in labor. She was admitted at 4 cm. On arrival to Labor and Delivery she had no shortness of breath, no chills, no fever, no rupture of membranes or bloody show. heart rate was category 1. COURSE: Has been unremarkable. LABS: Blood type A positive, antibody negative, rubella immune, GBS positive. PAST MEDICAL HISTORY: The patient has a history of depression with anxiety. PAST SURGICAL HISTORY: The patient has had knee surgery in the past. LEGUILLON DEBEADER HISTORY: The patient has had 2 vaginal deliveries. SOCIAL HISTORY: The patient is a smoker, smokes about a pack a day. Denies drug or alcohol use. FAMILY HISTORY: Noncontributory. PHYSICAL EXAMINATION: GENERAL: Well-developed, well-nourished white female in no acute distress. HEART: S1, S2, regular rhythm and rate. LUNGS: Clear to auscultation bilateral. ABDOMEN: Gravid. PELVIC: 4 cm. EXTREMITIES: No cyanosis, clubbing or edema. ASSESSMENT AND PLAN: This is a 28-year-old G7, P2 at 40 weeks and 4 days, admitted for labor. Positive GBS. We will start antibiotics prophylaxis. PLAN: Anticipate vaginal delivery.
[2019-01-24] MEDS: IBUPROFEN 600 MG TAB PO PRN ×4 (05:31→21:00)
--- NOTE | 2019-01-24 07:38 | Anesthesia Procedure Note ---
Date of Service January 24, 2019 Anesthesia Post Epidural Note Vital Signs Vital Signs: Temp Pulse Resp BP Pulse Ox 36.6 C 57 L 18 112/65 100 01/24/19 05:10 01/24/19 05:10 01/24/19 05:10 01/24/19 05:10 01/24/19 02:41 Notes Mental Status: alert / awake / arousable Patient Amnestic to Procedure: Yes Nausea / Vomiting: adequately controlled Pain: adequately controlled Airway Patency, RR, SpO2: stable & adequate BP & HR: stable & adequate Hydration State: stable & adequate Neuraxial Anesthesia: was administered and sensory block resolved Anesthetic Complications: no major complications apparent and Pt Satisfied with anesthetic care Epidural: Removed without complications and With tip intact
[2019-01-24] MEDS: PRENATAL VITAMIN 1 TAB PO SCH (09:40)
[2019-01-24] MEDS: FERROUS SULFATE 325 MG TAB PO SCH (09:40)
[2019-01-24] MEDS: DOCUSATE SODIUM 100 MG CAP PO SCH ×2 (09:40→20:15)
[2019-01-24] MEDS: ACETAMINOPHEN 325 MG TAB PO PRN ×2 (12:03→21:36)
--- NOTE | 2019-01-24 14:11 | Delivery Summary ---
DATE OF OPERATION: 01/24/2019 DELIVERY NOTE The patient delivered a live in left occiput anterior presentation. There was no nuchal cord. was delivered, placed on mother's abdomen. Cord was clamped and cut. A segment of the cord was cut for cord gases. Cord blood was obtained. Placenta was spontaneously delivered. Inspection of the placenta showed some meconium. This appeared to be terminal meconium. Infant's weight and Apgars are in the pediatric record. Inspection of the perineum showed no laceration or tears. Perineum is intact. Placenta is sent to Pathology for pathological analysis. ESTIMATED BLOOD LOSS: 600 mL. 's weight and Apgars are in the pediatric record. All instruments were removed from the vagina including retractors and sponges. These are accounted for x2. The patient and baby are stable and are in recovery. I attest to the content of the Intraoperative Record and any orders documented therein. Any exception s are noted below.
[2019-01-24] MEDS ORDERED: LIDOCAINE/PRILOCAINE 2.5% EA CRM EXT ONE (14:34)
[2019-01-24] MEDS ORDERED: ONDANSETRON 8MG OD TAB PO PRN (22:05)
[2019-01-25 06:46] LABS: Hematocrit (blood only) 36.5 % (37-47); Hemoglobin 12.3 g/dL (12.0-16.0); Mean Corpuscular Hgb Conc 33.7 g/dL (32-36); Mean Corpuscular Volume 87.3 fL (80-100); Mean Platelet Volume 11.3 fL (7.4-10.4); Platelet Count 198 K/uL (130-400); RDW Coefficient of Variation 14.5 % (11.5-14.5); Red Blood Count 4.18 M/uL (4.2-5.4); White Blood Count 10.93 K/uL (4.8-10.8)
[2019-01-25] MEDS: DOCUSATE SODIUM 100 MG CAP PO SCH ×2 (07:48→20:56)
[2019-01-25] MEDS: FERROUS SULFATE 325 MG TAB PO SCH (07:48)
[2019-01-25] MEDS: PRENATAL VITAMIN 1 TAB PO SCH (07:48)
[2019-01-25] MEDS ORDERED: DIPHTHERIA/TETANUS/PERTUSSIS 0.5 ML SYR/VIAL IM ONE (09:00)
--- NOTE | 2019-01-25 09:32 | Obstetrical Progress Note ---
Date of Service January 25, 2019 Subjective doing well passing gas Physical Exam Constitutional: WD/WN, vitals as above comfortable abdomen soft fundus firm no edema neg dipesh's for discharge Results & Data Vital Signs (Past 12 Hours) Vital Signs Temp Pulse Resp BP Pulse Ox 01/25/19 08:55 36.7 C 58 L 18 112/69 98 01/24/19 23:30 36.6 C 56 L 18 120/66
[2019-01-25] MEDS: ACETAMINOPHEN 325 MG TAB PO PRN ×2 (09:38→22:52)
[2019-01-25] MEDS ORDERED: BISACODYL 5 MG TABEC PO SCH (20:00)
[2019-01-26 06:54] LABS: Hematocrit (blood only) 38.5 % (37-47); Hemoglobin 13.4 g/dL (12.0-16.0)
[2019-01-26] MEDS: FERROUS SULFATE 325 MG TAB PO SCH (09:42)
[2019-01-26] MEDS: DOCUSATE SODIUM 100 MG CAP PO SCH (09:42)
[2019-01-26] MEDS: IBUPROFEN 600 MG TAB PO PRN (09:42)
[2019-01-26] MEDS: PRENATAL VITAMIN 1 TAB PO SCH (09:43)
--- NOTE | 2019-01-26 10:27 | Obstetrical Progress Note ---
Date of Service January 26, 2019 Assessment & Plan (1) normal course: PPD #2 pt doing well dsich home with instructions Physical Exam Vital Signs (Past 24 Hours) Last Vital Signs Temp 36.8 C 01/26/19 07:25 Pulse 69 01/26/19 07:25 Resp 18 01/26/19 07:25 BP 108/68 01/26/19 07:25 Pulse Ox 96 01/26/19 07:25
--- OUTSIDE RECORDS SUMMARY | 2019-01-29 18:24 | External Medical Summary | Continuity of Care Document ---
:1990 Author Name Yonny Holbrook, Provider Address Unavailable Unavailable , Care Team Providers Name Role Phone Agustín Sam M.D. Unavailable [email or web address] PCP, UNKNOWN Unavailable Unavailable Problems Active medical history not documented Allergies and Adverse Reactions Allergy history not documented Medications Medications not documented Procedures Procedures not documented Immunizations Immunizations not documented Plan of Treatment Planned Observations Planned Goals not documented Results No Known Results Results not documented Encounters Appointment; Agustín Sam M.D. 22-Sep-2016 13:00 Encounter Diagnosis: Problem not documented
== END 2019-01-26 11:20 | disposition home or self-care (01) | DRG 807 ==
LOC: OPB 19:48 → 4S1 19:49 → 4S2 01-24 05:10